=== PATIENT | male | born 1965 | race Caucasian/White ===

== ENCOUNTER → 2016-08-02 | Outpatient (REF) | payer OTHER ==
[2016-08-02 14:16] LABS: BASO % 0.5 % (0.0-1.0); EOS # 0.1 K/mm3 (0.0-0.50); LARGE UNSTAINED CELL # 0.1 K/mm3 (0.0-0.4); LARGE UNSTAINED CELL % 2.6 % (0.0-4.0); LYMPH # 1.3 K/mm3 (1.5-4.5); MEAN CORPUSCULAR HEMOGLOBIN 30.1 pg (27.0-33.0); MEAN CORPUSCULAR HGB CONC 33.6 g/dl (32.0-36.5); MEAN CORPUSCULAR VOLUME 89.8 fl (80.0-96.0); MONO # 0.4 K/mm3 (0.0-0.8); MONO % 8.5 % (0.0-5.0); NEUTROPHILS % 61.4 % (36.0-66.0); PLATELET COUNT, AUTOMATED 261 k/mm3 (150-450); WHITE BLOOD COUNT 4.9 K/mm3 (4.0-10.0)
== END ==
LOC: M LABNEURO 13:20
PROVIDERS: ATTEND Physician Assistant Medical
DX: G40.909 Epilepsy, unspecified, not intractable, without status epilepticus (principal)

== ENCOUNTER 2016-08-23 12:11 | Emergency (ER) | payer OTHER ==
[~2016-08-23] VITALS: Ht 175.3 cm; Wt 77.1 kg
[2016-08-23 12:12] VITALS: BP 143/96
[2016-08-23] MEDS ORDERED: DEPA1TAB3 PO (12:28)
[2016-08-23] MEDS ORDERED: NAPR500T PO (13:12)
== END 2016-08-23 13:41 | disposition home or self-care (01) ==
LOC: M ED 13:21
DX: M75.81 Other shoulder lesions, right shoulder (principal); F17.200 Nicotine dependence, unspecified, uncomplicated; Z79.899 Other long term (current) drug therapy

== ENCOUNTER 2016-10-20 22:15 | Emergency (ER) | payer BC, OTHER ==
[~2016-10-20 22:15] MED LIST: DEPA1TAB3 PO; NAPR500T PO
[2016-10-20] MEDS ORDERED: KETOROLAC 30 MG/ML VIAL (J1885) IV ONE (23:30)
--- NOTE | 2016-10-21 00:53 | REP ---
Clinical: Cough. Technique: PA and lateral. Comparison: None. Findings: Diffuse perihilar and predominantly upper lobe infiltrates suggest multifocal pneumonia. No effusion. No pneumothorax. Cardiac silhouette is normal. Underlying adenopathy cannot be excluded. Skeletal structures are intact. Impression: Findings suggest multifocal pneumonia and possible reactive adenopathy. Signed by Yvon Sethi MD 10/21/2016 12:45 A
[2016-10-21 01:56] LABS: ANION GAP 6 MEQ/L (8-16); BASO % 0.3 % (0.0-1.0); BLOOD UREA NITROGEN 12 MG/DL (7-18); CALCIUM LEVEL 8.6 MG/DL (8.5-10.1); CARBON DIOXIDE LEVEL 30 MEQ/L (21-32); CHLORIDE LEVEL 107 MEQ/L (98-107); CREATININE FOR GFR 0.97 MG/DL (0.70-1.30); EOS # 0.2 K/mm3 (0.0-0.50); GLOMERULAR FILTRATION RATE > 60.0 (>56); GLUCOSE, FASTING 103 MG/DL (70-105); LARGE UNSTAINED CELL # 0.1 K/mm3 (0.0-0.4); LARGE UNSTAINED CELL % 2.2 % (0.0-4.0); LYMPH # 1.3 K/mm3 (1.5-4.5); LYMPH % 17.8 % (24.0-44.0); MEAN CORPUSCULAR HEMOGLOBIN 30.3 pg (27.0-33.0); MEAN CORPUSCULAR HGB CONC 34.2 g/dl (32.0-36.5); MEAN CORPUSCULAR VOLUME 88.5 fl (80.0-96.0); MONO # 0.7 K/mm3 (0.0-0.8); MONO % 11.1 % (0.0-5.0); NEUTROPHILS # 4.2 K/mm3 (1.8-7.7); NEUTROPHILS % 65.7 % (36.0-66.0); PLATELET COUNT, AUTOMATED 261 k/mm3 (150-450); POTASSIUM SERUM 3.9 MEQ/L (3.5-5.1); SODIUM LEVEL 143 MEQ/L (136-145); WHITE BLOOD COUNT 6.4 K/mm3 (4.0-10.0)
--- NOTE | 2016-10-21 02:09 | REP ---
Clinical: Pneumonia. Cough. Technique: Axial noncontrast images from the thoracic inlet to the upper abdomen with coronal and sagittal re-formations. Findings: Diffuse moderate bilateral reticulonodular interstitial infiltrates are appreciated primarily involving the upper lobes (left greater than right) and superior segments of the lower lobes. Subtle reactive mediastinal and hilar adenopathy is suggested. No pleural effusion or pneumothorax. The tracheobronchial tree is patent. The dominant nodule is identified in the left lower lobe measuring 7.5 mm (image 71). Thoracic aorta, heart and pericardium are relatively normal for age. Musculoskeletal structures are intact and without focal osseous abnormality. Impression: 1. Moderate diffuse bilateral reticulonodular interstitial infiltrates with reactive adenopathy. Findings suggest acute multifocal pneumonia / pneumonitis. Follow-up to resolution and/or reevaluation and 3 months may be warranted. 2. 7.5 mm dominant soft tissue nodule in the left lower lobe also requires 3-month follow-up evaluation. Signed by Yvon Sethi MD 10/21/2016 01:59 A
[2016-10-21] MEDS ORDERED: NAPR500T PO (04:01)
[2016-10-21 04:18] VITALS: BP 136/87
--- NOTE | 2016-10-22 08:43 | ED PDOC ---
Post-Departure Follow-Up chet olvera faxed formal report of ct chest. pt also sent certified letter. see rad recomm. laineg Ryan Mccabe MD Oct 22, 2016 08:43
--- NOTE | 2016-10-22 09:09 | ECGEPIP ---
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
== END 2016-10-21 04:26 | disposition home or self-care (01) ==
LOC: EDBD 22:15 → M ED 23:53
DX: J18.9 Pneumonia, unspecified organism (principal); R07.89 Other chest pain; R05 Cough; R91.1 Solitary pulmonary nodule; F17.200 Nicotine dependence, unspecified, uncomplicated; Z79.899 Other long term (current) drug therapy
CPT/HCPCS: 36415; 71020; 71250; 80048; 85025; 87040; 93005; 96374; 99284; J1885

== ENCOUNTER 2016-10-25 10:22 | Emergency (ER) | payer BC ==
[~2016-10-25] VITALS: Ht 175.3 cm; Wt 76.5 kg
[2016-10-25 12:26] VITALS: BP 135/95
[2016-10-25] MEDS ORDERED: BACT800T5 PO (12:29)
[2016-10-25] MEDS ORDERED: NAPR500T PO (12:29)
--- NOTE | 2016-10-25 12:33 | REP ---
REASON: Upper back mass. No prior ultrasound exams for comparison. Previous chest CT 10/21/2016 showed a 3 cm sized low density but solid appearing subcutaneous and deep subcutaneous nodule just to the left of the midline back at the level of the T4-5 interspace. Ultrasonography over the region of interest shows a mixed but solid vascular mass which measures 4.2 x 2.2 x 4.2 cm. Internal Doppler signal from vascular flow excludes an abscess. IMPRESSION: There is a solid mass just to the left of midline in the upper back region as described above. Signed by Josué Christianson DO 10/25/2016 01:43 P
== END 2016-10-25 12:37 | disposition home or self-care (01) ==
LOC: M ED 11:43
DX: L03.312 Cellulitis of back [any part except buttock and flank] (principal); D17.1 Benign lipomatous neoplasm of skin and subcutaneous tissue of trunk; G40.909 Epilepsy, unspecified, not intractable, without status epilepticus; F17.200 Nicotine dependence, unspecified, uncomplicated; Z79.1 Long term (current) use of non-steroidal anti-inflammatories (NSAID); Z79.899 Other long term (current) drug therapy

== ENCOUNTER → 2016-11-01 | Outpatient (REF) | payer BC ==
[~2016-11-01] MED LIST changes: +BACT800T5 PO
== END ==
LOC: M SFHCPLAZ 16:50
DX: L02.212 Cutaneous abscess of back [any part, except buttock and flank] (principal)

== ENCOUNTER → 2016-11-02 | Outpatient (CLI) | payer BC ==
[2016-11-02 13:04] LABS: BASO % 0.7 % (0.0-1.0); EOS # 0.2 K/mm3 (0.0-0.50); EOS % 4.9 % (0.0-3.0); LARGE UNSTAINED CELL # 0.2 K/mm3 (0.0-0.4); LARGE UNSTAINED CELL % 3.4 % (0.0-4.0); LYMPH % 18.2 % (24.0-44.0); MEAN CORPUSCULAR HEMOGLOBIN 30.7 pg (27.0-33.0); MEAN CORPUSCULAR HGB CONC 33.9 g/dl (32.0-36.5); MEAN CORPUSCULAR VOLUME 90.6 fl (80.0-96.0); MONO # 0.5 K/mm3 (0.0-0.8); MONO % 11.4 % (0.0-5.0); NEUTROPHILS # 2.9 K/mm3 (1.8-7.7); NEUTROPHILS % 61.3 % (36.0-66.0); PLATELET COUNT, AUTOMATED 263 k/mm3 (150-450); RED CELL DISTRIBUTION WIDTH 12.8 % (11.5-14.5); WHITE BLOOD COUNT 4.7 K/mm3 (4.0-10.0)
[2016-11-02 13:37] LABS: ALBUMIN 3.4 GM/DL (3.2-5.2); ALBUMIN/GLOBULIN RATIO 0.94 (1.00-1.93); BILIRUBIN,TOTAL 0.5 MG/DL (0.2-1.0); CALCIUM LEVEL 9.1 MG/DL (8.5-10.1); CREATININE FOR GFR 1.39 MG/DL (0.70-1.30); GLOMERULAR FILTRATION RATE 57.6 (>56); POTASSIUM SERUM 4.9 MEQ/L (3.5-5.1)
== END ==
LOC: M WUC 08:12
DX: Z13.220 Encounter for screening for lipoid disorders (principal); Z79.899 Other long term (current) drug therapy; L02.212 Cutaneous abscess of back [any part, except buttock and flank]

== ENCOUNTER → 2017-03-18 | Outpatient (CLI) | payer BC ==
--- NOTE | 2017-03-18 17:04 | REP ---
Clinical: Follow-up pulmonary nodule. Comparison: 10/21/2016. Findings: Innumerable bilateral reticulonodular interstitial changes are appreciated primarily involving the bilateral upper lung zones in a pattern which is essentially unchanged when compared to prior examination. Nodules primarily measure up to 4 - 5 mm. With a solitary nodule in the left lower lobe measuring up to approximately 8 mm and unchanged. Mediastinal and hilar adenopathy is appreciated. Differential diagnosis includes but is not limited to Sarcoidosis. No pleural effusion. No pneumothorax. Tracheobronchial tree is patent. Thoracic aorta and heart/pericardium appear grossly unremarkable. Mild atherosclerotic changes to the aorta and coronary arteries noted. Impression: No significant change to the diffuse reticulonodular interstitial pattern and adenopathy as well as a 8 mm nodule in the left lower lobe. Differential diagnosis includes but is not limited to sarcoidosis and chronic pneumonitis. Pulmonology consultation is recommended. Signed by Yvon Sethi MD 03/18/2017 04:56 P
== END ==
LOC: M RAD 15:38
PROVIDERS: ATTEND Internal Medicine
DX: R91.1 Solitary pulmonary nodule (principal)

== ENCOUNTER → 2017-05-06 | Outpatient (CLI) | payer BC ==
[2017-05-06 14:10] LABS: CHOLESTEROL LEVEL 162 MG/DL (<200); CHOLESTEROL RISK RATIO 5.062 (<5); HDL CHOLESTEROL 32 MG/DL (>40); NON-HDL-C 130 MG/DL; TRIGLYCERIDES LEVEL 90 MG/DL (<150)
== END ==
LOC: M WUC 11:10
DX: E78.5 Hyperlipidemia, unspecified (principal)
CPT/HCPCS: 80061

== ENCOUNTER 2017-07-01 18:24 | Emergency (ER) | payer OTHER, BC ==
[2017-07-01] MEDS: TETRACAINE 0.5% OPHTH SOLN 4ML OD (19:15)
[2017-07-01] MEDS: FLUORESCEIN OPHTH 1 MG STRIP OD ×2 (19:45→19:52)
[2017-07-01] MEDS ORDERED: POLYTRIM OPTH DROPS 10ML OD (21:00)
== END 2017-07-01 20:45 | disposition home or self-care (01) ==
LOC: M ED 18:24
DX: S05.01XA Injury of conjunctiva and corneal abrasion without foreign body, right eye, initial encounter (principal); X58.XXXA Exposure to other specified factors, initial encounter; Y92.89 Other specified places as the place of occurrence of the external cause; Z79.899 Other long term (current) drug therapy; Z87.891 Personal history of nicotine dependence
CPT/HCPCS: 99283

== ENCOUNTER 2017-08-15 06:39 | Day surgery (SDC) | payer BC ==
[2017-08-15] MEDS: NS 1,000 ML IV (07:11)
[2017-08-15] MEDS ORDERED: PROPOFOL 200 MG/20 ML VIAL As Ordered ×2 (07:53→07:59)
[2017-08-15] MEDS ORDERED: LIDOCAINE 2% INJ 100 MG/5 ML SDV (FOR ANES.) As Ordered (07:53)
== END 2017-08-15 09:04 | disposition home or self-care (01) ==
LOC: M OPP 06:39
DX: Z12.11 Encounter for screening for malignant neoplasm of colon (principal); K64.8 Other hemorrhoids; D12.3 Benign neoplasm of transverse colon; D12.5 Benign neoplasm of sigmoid colon; K62.1 Rectal polyp; R56.9 Unspecified convulsions; Z79.899 Other long term (current) drug therapy; Z88.8 Allergy status to other drugs, medicaments and biological substances
CPT/HCPCS: 45385

== ENCOUNTER → 2017-08-18 | Outpatient (CLI) | payer BC ==
[2017-08-18 16:50] LABS: BASO % 0.4 % (0.0-1.0); EOS # 0.2 10^3/uL (0.0-0.50); EOS % 3.1 % (0.0-3.0); HEMATOCRIT 42.2 % (42.0-52.0); HEMOGLOBIN 14.3 g/dl (13.5-17.5); IMMATURE GRANULOCYTE % 0.4 % (0-3.0); LYMPH # 1.2 10^3/uL (1.5-4.5); LYMPH % 22.9 % (24.0-44.0); MEAN CORPUSCULAR HEMOGLOBIN 28.3 pg (27.0-33.0); MEAN CORPUSCULAR HGB CONC 33.9 g/dl (32.0-36.5); MEAN CORPUSCULAR VOLUME 83.6 fl (80.0-96.0); MONO # 0.6 10^3/uL (0.0-0.8); MONO % 12.2 % (0.0-5.0); NEUTROPHILS # 3.2 10^3/uL (1.8-7.7); PLATELET COUNT, AUTOMATED 267 10^3/uL (150-450); RED BLOOD COUNT 5.05 10^6/uL (4.30-6.10); RED CELL DISTRIBUTION WIDTH 12.9 % (11.5-14.5); WHITE BLOOD COUNT 5.2 10^3/uL (4.0-10.0)
[2017-08-18 17:24] LABS: AST/SGOT 34 U/L (7-37)
[2017-08-18 17:24] LABS: ALT/SGPT 26 U/L (12-78); VALPROIC ACID (DEPAKOTE) 64.3 UG/ML (50.0-100.0)
== END ==
LOC: M LAB 16:09
DX: R56.9 Unspecified convulsions (principal); Z79.899 Other long term (current) drug therapy
CPT/HCPCS: 84460

== ENCOUNTER 2017-12-22 16:53 | Emergency (ER) | payer BC ==
[2017-12-22] MEDS: NS 1,000 ML IV (16:24)
[2017-12-22 16:39] LABS: BASO % 0.5 % (0.0-1.0); EOS # 0.1 10^3/uL (0.0-0.50); EOS % 2.2 % (0.0-3.0); HEMATOCRIT 42.9 % (42.0-52.0); IMMATURE GRANULOCYTE % 0.3 % (0-3.0); LYMPH # 1.8 10^3/uL (1.5-4.5); LYMPH % 31.3 % (24.0-44.0); MEAN CORPUSCULAR HEMOGLOBIN 28.6 pg (27.0-33.0); MEAN CORPUSCULAR VOLUME 81.9 fl (80.0-96.0); MONO % 17.2 % (0.0-5.0); NEUTROPHILS # 2.8 10^3/uL (1.8-7.7); NEUTROPHILS % 48.5 % (36.0-66.0); PLATELET COUNT, AUTOMATED 312 10^3/uL (150-450); RED BLOOD COUNT 5.24 10^6/uL (4.30-6.10); WHITE BLOOD COUNT 5.9 10^3/uL (4.0-10.0)
[2017-12-22] MEDS: CLOPIDOGREL 300 MG TAB (PLAVIX) PO (16:39)
[2017-12-22] MEDS: HEPARIN SOD (PORCINE) 5000 UNITS/ML VIAL IV (16:40)
[2017-12-22] MEDS: HEPARIN DRIP 25,000 UNITS in APPROPRIATE DILUENT 1 EA IV (16:41)
[2017-12-22 16:48] LABS: ANION GAP 11 MEQ/L (8-16); BLOOD UREA NITROGEN 18 MG/DL (7-18); CALCIUM LEVEL 9.3 MG/DL (8.5-10.1); CARBON DIOXIDE LEVEL 27 MEQ/L (21-32); CHLORIDE LEVEL 102 MEQ/L (98-107); CPK CREATINE PHOSPHOKINASE 81 U/L (39-308); CREATININE FOR GFR 1.16 MG/DL (0.70-1.30); GLOMERULAR FILTRATION RATE > 60.0 (>56); GLUCOSE, FASTING 98 MG/DL (70-100); POTASSIUM SERUM 4.7 MEQ/L (3.5-5.1); PROTHROMBIN TIME 14.4 SECONDS (12.1-14.4); SODIUM LEVEL 140 MEQ/L (136-145); TROPONIN I < 0.02 NG/ML (< 0.10)
[2017-12-22 16:49] LABS: CK-MB VALUE MASS < 1.0 NG/ML (<3.6); MB/CK RELATIVE INDEX 1.23 (< OR =4); NT-PRO BNP 112 PG/ML (<125)
== END 2017-12-22 17:12 | disposition short-term general hospital (02) ==
LOC: M ED 16:53
DX: I21.29 ST elevation (STEMI) myocardial infarction involving other sites (principal); Z87.891 Personal history of nicotine dependence; Z88.8 Allergy status to other drugs, medicaments and biological substances; Z88.1 Allergy status to other antibiotic agents
CPT/HCPCS: 71045

== ENCOUNTER → 2018-08-10 | Outpatient (REF) | payer BC ==
[~2018-08-10] MED LIST changes: +ARTI99.0 OU; +NAPR-837 PO; -NAPR500T PO; +POLYSOL OP
[2018-08-10 13:34] LABS: BASO % 0.6 % (0.0-1.0); EOS # 0.1 10^3/uL (0.0-0.50); EOS % 2.6 % (0.0-3.0); HEMATOCRIT 46.3 % (42.0-52.0); LYMPH % 37.2 % (24.0-44.0); MEAN CORPUSCULAR HEMOGLOBIN 28.1 pg (27.0-33.0); MEAN CORPUSCULAR HGB CONC 32.4 g/dl (32.0-36.5); MEAN CORPUSCULAR VOLUME 86.7 fl (80.0-96.0); MONO # 0.7 10^3/uL (0.0-0.8); MONO % 13.8 % (0.0-5.0); NEUTROPHILS # 2.4 10^3/uL (1.8-7.7); NEUTROPHILS % 45.6 % (36.0-66.0); PLATELET COUNT, AUTOMATED 237 10^3/uL (150-450); RED BLOOD COUNT 5.34 10^6/uL (4.30-6.10); WHITE BLOOD COUNT 5.3 10^3/uL (4.0-10.0)
[2018-08-10 13:41] LABS: VALPROIC ACID (DEPAKOTE) 91.5 UG/ML (50.0-100.0)
== END ==
LOC: M LABNEURO 08:16
PROVIDERS: ATTEND Physician Assistant Medical
DX: Z79.899 Other long term (current) drug therapy (principal); G40.909 Epilepsy, unspecified, not intractable, without status epilepticus

== ENCOUNTER → 2019-01-22 | Outpatient (REF) | payer BC ==
[~2019-01-22] MED LIST changes: -ARTI99.0 OU; +ARTIDRO2 OU
[2019-01-22 16:03] LABS: CHOLESTEROL RISK RATIO 5.161 (<5)
[2019-01-22 16:17] LABS: HEMOGLOBIN A1c 5.6 %
== END ==
LOC: M SFHCPLAZ 13:24
DX: I25.118 Atherosclerotic heart disease of native coronary artery with other forms of angina pectoris (principal); E78.5 Hyperlipidemia, unspecified

== ENCOUNTER → 2019-02-05 | Outpatient (CLI) | payer BC ==
--- NOTE | 2019-02-05 16:27 | REP ---
HISTORY: Followup pulmonary nodule. COMPARISON: All priors were reviewed, the latest 03/18/2017. That prior examination showed an 8 mm sized nodule in the left lower lobe and a diffuse reticulonodular appearing interstitial pattern. The lack of intravenous contrast decreases the sensitivity of the exam. There is mediastinal and hilar adenopathy, difficult to evaluation without intravenous contrast and essentially unchanged from the latest prior exam. There are no pleural or pericardial effusions. There is no significant change in the appearance of the imaged upper abdomen or imaged osseous structures. Evaluation of the lung singer show heavy patchy and reticulonodular densities, scattered throughout the lung singer with biapical predominance. This has increased significantly compared to the latest prior exam. The heavy areas of consolidation have air bronchograms within them. There are innumerable (too numerous to count) pulmonary nodules of various sizes, some increased from the prior exam while others are new since the prior exam. IMPRESSION: 1. Adenopathy as described above. 2. Abnormal lung field findings as described above. Exact etiology uncertain. Once again, the differential diagnosis includes, but is not limited to sarcoidosis, chronic pneumonitis, BOOP, or other granulomatous/infectious etiologies. Certainly, neoplastic change cannot be ruled out. Electronically Signed by Josué Christianson DO 02/05/2019 04:34 P
== END ==
LOC: M RAD 10:33
PROVIDERS: ATTEND Internal Medicine
DX: R91.1 Solitary pulmonary nodule (principal)

== ENCOUNTER → 2019-04-09 | Outpatient (CLI) | payer BC ==
--- NOTE | 2019-04-09 11:29 | REP ---
Clinical: Follow up abnormal lung findings. Technique: Axial noncontrast images from the thoracic inlet to the upper abdomen with coronal and sagittal re-formations. Comparison: 02/05/2019. Findings: Diffuse reticulonodular interstitial infiltrates with coalescing areas of consolidation noted bilaterally and predominately involving the bilateral perihilar regions and upper lobes remains essentially stable. Underlying adenopathy is unchanged. No effusion. No pneumothorax. The tracheobronchial tree appears patent. No pneumothorax. Minimal atherosclerotic changes to the thoracic aorta and coronary arteries noted without aortic aneurysm or cardiomegaly. No pericardial effusion. Surrounding musculoskeletal structures are intact. Impression: No change from prior examination. Electronically Signed by Yvon Sethi MD 04/09/2019 11:20 A
== END ==
LOC: M RAD 09:58
PROVIDERS: ATTEND Internal Medicine Pulmonary Disease
DX: R91.8 Other nonspecific abnormal finding of lung field (principal)

== ENCOUNTER 2019-05-24 06:03 | Day surgery (SDC) | payer BC ==
[~2019-05-24] VITALS: Ht 175.3 cm; Wt 68.1 kg
[~2019-05-24 06:03] MED LIST changes: +ASPI81TA85 PO; +ATOR40TA75 PO; +GNP650TA8 PO; +LIDOCAINE 1% MDV 20ML VIAL SQ PRN; +LR 1,000 ML IV ONE
[2019-05-24] MEDS ORDERED: EPINEPHrine 1MG/ML INJ 30ML MD-VIAL As Ordered ONE (07:16)
[2019-05-24] MEDS ORDERED: THROMBIN SOLN 20,000 UNITS KIT As Ordered ONE (07:16)
[2019-05-24] MEDS ORDERED: LIDOCAINE 1% SDV INJ 30 ML VIAL As Ordered ONE (07:16)
[2019-05-24] MEDS ORDERED: LIDOCAINE VISCOUS 2% SOLN 15ML UDC As Ordered ONE (07:17)
[2019-05-24] MEDS ORDERED: LIDOCAINE 4% TOPICAL SOLN 50 ML BTL As Ordered ONE (07:17)
[2019-05-24] MEDS ORDERED: CETACAINE SPRAY 5GM As Ordered ONE (07:20)
[2019-05-24] MEDS ORDERED: ONDANSETRON 4MG/2ML VIAL (J2405) As Ordered ONE (07:23)
[2019-05-24] MEDS ORDERED: fentaNYL 100 MCG/2 ML INJECTION (J3010) As Ordered ONE (07:23)
[2019-05-24] MEDS ORDERED: propofoL 200 MG/20 ML VIAL As Ordered ONE (07:23)
[2019-05-24] MEDS ORDERED: LIDOCAINE 2% INJ 100 MG/5 ML SDV (FOR ANES.) As Ordered ONE (07:23)
[2019-05-24] MEDS ORDERED: MIDAZOLAM INJ 2 MG/2 ML VIAL (J2250) As Ordered ONE (07:23)
[2019-05-24] MEDS ORDERED: dexameTHASONE 4 MG/ML 1ML VIAL (J1100) As Ordered ONE (07:23)
[2019-05-24] MEDS ORDERED: ROCURONIUM BROMIDE 50 MG/5 ML VIAL As Ordered ONE (07:23)
[2019-05-24] MEDS ORDERED: SUGAMMADEX SODIUM 500 MG/5 ML VIAL (BRIDION) As Ordered ONE (07:59)
[2019-05-24] MEDS ORDERED: ePHEDrine SULFATE 25 MG/5 ML(5MG/ML) SYRINGE As Ordered ONE (08:00)
[2019-05-24] MEDS ORDERED: PHENYLephrine HCL 500 MCG/5 ML (100MCG/ML) SYRINGE (J2370) As Ordered ONE (08:10)
[2019-05-24] MEDS ORDERED: METOCLOPRAMIDE INJ 10MG/2ML VIAL (J2765) IV PRN (09:30)
[2019-05-24] MEDS ORDERED: fentaNYL 100 MCG/2 ML INJECTION (J3010) IV PRN (09:30)
[2019-05-24] MEDS ORDERED: LR 1,000 ML IV SCH (09:30)
[2019-05-24] MEDS ORDERED: ONDANSETRON 4MG/2ML VIAL (J2405) IV PRN (09:30)
--- NOTE | 2019-05-24 09:56 | REP ---
Portable chest x-ray: Single view. History: Postop evaluation. Comparison study: December 22, 2017. Findings: There is a progressive bilateral interstitial nodular infiltrate pattern throughout the lung singer again seen. These markings are more confluent in the upper lobe perihilar distribution. There has been evidence of progression since December 22, 2017. There is no evidence of pneumothorax or hydrothorax. Electronically Signed by Ion Hylton MD 05/24/2019 09:47 A
--- NOTE | 2019-05-24 10:04 | RO ---
DATE OF PROCEDURE: 05/24/2019 PREOPERATIVE DIAGNOSIS: Bilateral consist the infiltrates with coalescence and mediastinal and hilar lymphadenopathy. POSTOPERATIVE DIAGNOSIS: Bilateral consist the infiltrates with coalescence and mediastinal and hilar lymphadenopathy. PROCEDURE: Bronchoscopy with a ENB with transbronchial biopsies in the right middle lobe and right upper lobe and EBUS with fine needle aspirate of subcarinal lymph node. ANESTHESIA: General. PROCEDURE: Signed consent obtained. Mr. Colon was intubated by anesthesia and that service controlled pain and sedation. [place] procedure was followed. After the time out, the bronchoscopy bronchoscope was entered into the trachea. The left and right lungs were examined. There was a small amount of thick secretions which were read evacuated. Lungs showed normal anatomy airways showed pitting and banding. The ENB probe was then placed and registration was done. Following this a right middle lobe lesion was located using ENB and transbronchial biopsies were taken under fluoroscopy. Following this the ENB probe was replaced and the right upper lobe region was located. An additional five transbronchial biopsies were taken using fluoroscopy. Following this, the airways were examined showed no significant heme. The EBUS probe scope was then used and fine needle aspirate of the subcardinal lymph node was done. Following this, the conventional pro with replaced again used to ensure no significant melena. There is minimal heme and after ensuring that the airways had no new findings, the bronchoscope was withdrawn. Tolerated well. Postprocedure chest x-ray pending. FINDINGS: 1. Minimal secretions. 2. Pitting and banding of the airways. SPECIMENS: 1. Right middle lobe and right upper lobe transbronchial biopsies sent to pathology. 2. Right upper lobe BAL sent to microbiology for AFB and fungal cultures. 3. Subcarinal fine-needle aspirate sent to cytology.
[2019-05-24 11:03] VITALS: BP 103/66
--- NOTE | 2019-05-25 06:45 | ECGEPIP ---
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 : 1965 Requested By: Yee LOUISE Order Number: [id number] Reading MD: Hong Serna Measurements Intervals [place] Rate: 86 P: 64 RI: 153 QRS: 40 QRSD: 88 T: 26 QT: 345 QTc: 415 Interpretive Statements Normal sinus rhythm Some delay in anterior R-wave progression Nonspecific repolarization abnormalities No significant change since prior tracing of 12/22/2017 Electronically Signed on 05-25-2019 6:45:19 EST by Hong Srena
== END 2019-05-24 11:52 | disposition home or self-care (01) ==
LOC: M SDC 06:03
PROVIDERS: ATTEND Internal Medicine Pulmonary Disease
DX: D86.0 Sarcoidosis of lung (principal); R05 Cough; R06.00 Dyspnea, unspecified; R56.9 Unspecified convulsions; I25.118 Atherosclerotic heart disease of native coronary artery with other forms of angina pectoris; E78.5 Hyperlipidemia, unspecified; I25.2 Old myocardial infarction; Z79.82 Long term (current) use of aspirin; Z79.899 Other long term (current) drug therapy; Z87.891 Personal history of nicotine dependence
CPT/HCPCS: 31627; 31628; 31632; 31652; 71045; 76000; 87102; 87116; 87206; 88173; 88305; 93005; J1100; J2250; J2370; J2405; J3010

== ENCOUNTER → 2019-06-04 | Outpatient (CLI) | payer BC ==
[~2019-06-04] MED LIST changes: -LIDOCAINE 1% MDV 20ML VIAL SQ PRN; -LR 1,000 ML IV ONE
[2019-06-04 10:03] LABS: BASO % 0.4 % (0.0-1.0); EOS # 0.1 10^3/uL (0.0-0.5); EOS % 1.8 % (0.0-3.0); HEMATOCRIT 43.1 % (42.0-52.0); HEMOGLOBIN 13.7 g/dl (13.5-17.5); LYMPH # 2.2 10^3/uL (1.5-5.0); LYMPH % 39.3 % (24.0-44.0); MEAN CORPUSCULAR HEMOGLOBIN 27.4 pg (27.0-33.0); MEAN CORPUSCULAR HGB CONC 31.8 g/dl (32.0-36.5); MEAN CORPUSCULAR VOLUME 86.2 fl (80.0-96.0); MONO # 0.9 10^3/uL (0.0-0.8); MONO % 15.6 % (0.0-5.0); NEUTROPHILS # 2.3 10^3/uL (1.5-8.5); NEUTROPHILS % 42.5 % (36.0-66.0); PLATELET COUNT, AUTOMATED 231 10^3/uL (150-450); WHITE BLOOD COUNT 5.5 10^3/uL (4.0-10.0)
[2019-06-04 10:36] LABS: ALT/SGPT 21 U/L (12-78); BILIRUBIN,DIRECT 0.1 MG/DL (0.0-0.2); BILIRUBIN,TOTAL 0.4 MG/DL (0.2-1.0); CALCIUM LEVEL 9.2 MG/DL (8.5-10.1); CREATININE FOR GFR 1.07 MG/DL (0.70-1.30); GLOMERULAR FILTRATION RATE > 60.0 (>56); TOTAL PROTEIN 7.7 GM/DL (6.4-8.2)
== END ==
LOC: M LAB 09:22
PROVIDERS: ATTEND Internal Medicine Pulmonary Disease
DX: D86.2 Sarcoidosis of lung with sarcoidosis of lymph nodes (principal)

== ENCOUNTER 2019-06-27 15:48 | Inpatient (IN) | payer BC ==
[~2019-06-27] VITALS: Ht 175.3 cm; Wt 66.8 kg
[~2019-06-27 15:48] MED LIST changes: -ARTIDRO2 OU; +MEROPENEM INJ 1 GM in IV 1 EA IV SCH; +POLYOPD OU
--- NOTE | 2019-06-27 16:59 | REP ---
Portable chest, single AP view the patient semi upright: Comparisons are the chest CT dated 04/09/2019, PA and lateral chest of 10/20/2016, portable chest, 2017 and portable chest of 05/24/2019. The there is diffuse chronic bilateral marked interstitial coarsening that has gradually increased radiodensity over the course of the prior studies. The densities in the upper lobes have increased and greater right than the remainder the lung singer, particularly on the right. Impression: Diffuse bilateral interstitial coarsening that have gradually increased in density over the series of films. The density in the upper lobes increases at a greater right than the remainder of the lung singer particularly on the right. Electronically Signed by Lio Retana MD 06/27/2019 04:50 P
[2019-06-27 17:09] LABS: BASO % 0.2 % (0.0-1.0); EOS % 0.3 % (0.0-3.0); HEMATOCRIT 34.7 % (42.0-52.0); LYMPH # 0.8 10^3/uL (1.5-5.0); LYMPH % 7.6 % (24.0-44.0); MEAN CORPUSCULAR HEMOGLOBIN 28.7 pg (27.0-33.0); MEAN CORPUSCULAR HGB CONC 34.6 g/dl (32.0-36.5); MONO # 1.2 10^3/uL (0.0-0.8); MONO % 11.1 % (0.0-5.0); NEUTROPHILS # 8.4 10^3/uL (1.5-8.5); NEUTROPHILS % 80.4 % (36.0-66.0); PLATELET COUNT, AUTOMATED 272 10^3/uL (150-450); RED BLOOD COUNT 4.18 10^6/uL (4.30-6.10); WHITE BLOOD COUNT 10.4 10^3/uL (4.0-10.0)
[2019-06-27 17:21] LABS: INR 1.3; PROTHROMBIN TIME 15.9 SECONDS (11.8-14.0)
[2019-06-27 17:22] LABS: PARTIAL THROMBOPLASTIN TIME 35.9 SECONDS (25.0-38.4)
[2019-06-27 17:26] LABS: ALBUMIN 2.4 GM/DL (3.2-5.2); ALT/SGPT 31 U/L (12-78); BILIRUBIN,DIRECT 0.2 MG/DL (0.0-0.2); BILIRUBIN,TOTAL 0.6 MG/DL (0.2-1.0); BLOOD UREA NITROGEN 18 MG/DL (7-18); CALCIUM LEVEL 8.2 MG/DL (8.5-10.1); CARBON DIOXIDE LEVEL 28 MEQ/L (21-32); CHLORIDE LEVEL 100 MEQ/L (98-107); CK-MB VALUE MASS < 1.0 NG/ML (<3.6); CPK CREATINE PHOSPHOKINASE 120 U/L (39-308); CREATININE FOR GFR 1.05 MG/DL (0.70-1.30); GLOMERULAR FILTRATION RATE > 60.0 (>56); GLUCOSE, FASTING 109 MG/DL (70-100); LIPASE 168 U/L (73-393); MB/CK RELATIVE INDEX 0.83 (< OR =4); POTASSIUM SERUM 3.8 MEQ/L (3.5-5.1); SODIUM LEVEL 133 MEQ/L (136-145); TROPONIN I < 0.02 NG/ML (< 0.10)
[2019-06-27] MEDS ORDERED: ISOVUE-370 76% 100ML VIAL (Q9967) As Ordered ONE (17:57)
--- NOTE | 2019-06-27 18:41 | REPVR ---
PROCEDURE INFORMATION: Exam: CT Angiography Chest With Contrast Exam date and time: 06/27/2019 5:59 PM Age: 53 years old Clinical indication: Right-sided chest pain; Additional info: Pleuritic R chest pain TECHNIQUE: Imaging protocol: Computed tomographic angiography of the chest with intravenous contrast. 3D rendering: MIP and/or 3D reconstructed images were created by the technologist. Radiation optimization: All CT scans at this facility use at least one of these dose optimization techniques: automated exposure control; mA and/or kV adjustment per patient size (includes targeted exams where dose is matched to clinical indication); or iterative reconstruction. Contrast material: ISOVUE 370; Contrast volume: 75 ml; Contrast route: IV; COMPARISON: CT Chest without contrast 04/09/2019 10:21 AM FINDINGS: Pulmonary arteries: No focal pulmonary artery filling defect to suggest acute pulmonary embolus. Aorta: No thoracic aortic aneurysm or dissection. Lungs: Pulmonary vascular/interstitial pattern does not suggest active pulmonary edema. Diffuse reticulonodular infiltrates are present in the lungs with areas of perihilar and suprahilar confluence. A new area of consolidation with cavitary properties is present in the right upper lobe measuring 5 x 6 cm. Pleural space: No pleural effusion or pneumothorax. Heart: No overt cardiac enlargement or abnormal volume of pericardial fluid. Lymph nodes: Enlarged mediastinal lymph nodes are present diffusely, along with hilar adenopathy, similar in appearance to the prior CT. The adenopathy is also similar compared to a remote CT from March 18, 2017. Bones/joints: Bony structures show no acute fracture or destructive process. Other findings: Limited visualization of upper abdomen shows no concerning finding. IMPRESSION: 1. No evidence of acute pulmonary embolus. 2. New area of lung consolidation with cavitary properties in the right upper lobe measuring 5 x 6 cm, suggestive of an infectious process which may be necrotizing. 3. Underlying severe reticulonodular interstitial disease with stable perihilar infiltrates and mediastinal and hilar lymphadenopathy suggestive of underlying sarcoidosis or indolent atypical infection Electronically signed by: Colt Celaya On 06/27/2019 18:40:55 PM
[2019-06-27] MEDS ORDERED: cefTRIAXone SOD 1 GM in D5W MINI-BAG PLUS 50 ML IV ONE (20:30)
[2019-06-27] MEDS ORDERED: VANCOMYCIN HCL 1,000 MG, VIAL MATE ADAPTER 1 EACH in D5W 250 ML IV SCH (20:30)
[2019-06-27] MEDS ORDERED: DIVA250T67 PO (20:44)
[2019-06-27] MEDS ORDERED: DIVA500T94 PO (20:44)
[2019-06-27] MEDS ORDERED: KETOROLAC 30 MG/ML VIAL (J1885) IV ONE (21:00)
[2019-06-27] MEDS ORDERED: POLYVINYL ALCOHOL OPHTH SOLN 15 ML(LIQUITEARS) OU SCH (21:00)
[2019-06-27] MEDS ORDERED: DIVALPROEX 250 MG TAB PO SCH (21:00)
[2019-06-27] MEDS: AZITHROMYCIN INJ 500 MG, VIAL MATE ADAPTER 1 EACH in D5W 250 ML IV ONE ×2 (21:00→22:45)
[2019-06-27] MEDS ORDERED: guaiFENesin DM LIQ 10ML UD PO ONE (21:00)
--- NOTE | 2019-06-27 21:00 | ECGEPIP ---
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
[2019-06-27 21:11] LABS: ERYTHROCYTE SEDIMENTATION RATE 63 mm/hr (0-20)
--- NOTE | 2019-06-27 21:55 | HPE ---
DATE OF ADMISSION: 06/27/2019 CHIEF COMPLAINT: Pleuritic chest pain right upper lobe. HISTORY OF PRESENTING ILLNESS: This is a 53-year-old, cachectic appearing male with more than 30 pack-year history of smoking, quit November 2016, is being worked up for sarcoidosis, recently had a bronchoscopy done in early June by buffing wheel former automatic, Dr Bahena, presents to emergency room with complaints of right upper lobe pleuritic chest pain that started last after the bronchoscopy, much more pronounced today, described as sharp, persistent throughout the day, rated 10/10 on a pain scale. Patient did not take any [id number] medications, denied any use of acetaminophen or ibuprofen, unchanged with position. Patient also had some shortness of breath when he was ambulating and going up the stairs. He has had a cough productive of green sputum, very liquidy. No fever, chills, rigors. No nausea, vomiting, headache, sore throat, ear discharge, changes in appetite, weight gain, or weight loss. No difficulty sleeping at night. He does have persistent cough at the bedside currently and was taking NyQuil day and night at home. He otherwise denied any dysphagia or odynophagia. In the emergency room (ER), he was afebrile, 99.7, white count was 10.4, sedimentation rate was pending, CRP is also pending. Patient was found to be comfortable with 96% on room air. CT angio showed no pulmonary embolism, but new area of lung consolidation with cavitation in the right upper lobe measuring 5 x 6 cm suggestive of an infectious process which may be necrotizing. Underlying severe reticulonodular interstitial disease with stable perihilar infiltrates and mediastinal and hilar lymphadenopathy suggestive of underlying sarcoidosis or indolent atypical infection. Hospitalist was asked to admit for possible right upper lobe necrotizing infection versus atypical infection in the setting of probable sarcoidosis currently being worked up by Dr. Bahena, buffing wheel former automatic. Patient also admits to slight hemoptysis which he said was normal after bronchoscopy. Otherwise, no other complaints. Patient has had no change in weight, remains at 147 pounds. Patient denies any pets at home or recent travel. 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 He lives with his father. No recent travel outside of [facility] and no exposure to birds or bats. PAST MEDICAL HISTORY: Probable sarcoidosis, history of seizures, cutaneous abscess of the back, coronary artery disease status post myocardial infarction (MN) in 2018, hyperlipidemia, external and internal hemorrhoids, colonic polyps, tubular and hyperplastic. PAST SURGICAL HISTORY: Bronchoscopy early June 2019, [facility], Dr. Bahena. ALLERGIES: Adhesives, causing a rash. NEOSPORIN, causing a rash. FAMILY HISTORY: Father alive, age 76, with hypertension and hypercholesterolemia. Mother in her 70s with liver failure associated with alcohol abuse. Three brothers are alive, one brother has hypertension. HOME MEDICATIONS: - acetaminophen 650 as needed for headache - aspirin 81 daily - atorvastatin 40 daily - Depakote 500 mg twice a day, 250 twice a day - artificial tears both eyes twice a day SOCIAL HISTORY: Lives with his father. 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 He has no pets. No exposure to bats, birds. He is exposed to insulation, sheet rock, and dust. Previous smoker, quit November 2016, a pack a day for over 30 years. Drinks one or two beers on Fridays. No recreational drug use. REVIEW OF SYSTEMS: Per history of presenting illness (HPI). 12-point system otherwise negative. PHYSICAL EXAMINATION: Vital signs: Temperature 99.7, pulse 79, respiratory rate 18, blood pressure 128/72, 96% on room air. Generally: Patient appears cachectic, disheveled, very poor dentition with missing teeth. No jugular venous distention (JVD), no thyromegaly, no cervical lymphadenopathy. No cyanosis, able to speak in full sentences, no tracheal deviation. Tongue is midline. No axillary or lymphadenopathy. Lung exam: Air entry is equal bilaterally, no kyphoscoliosis, unlabored, there is very fine crackles in the right upper lobe, no rales, some coarse rhonchi. Abdomen: Soft, scaphoid, positive bowel sounds times four quadrants. No rebound, guarding, no hepatosplenomegaly, no abdominal bruits. No CVA tenderness. Extremities: No cyanosis, clubbing, or pitting edema. Skin: Warm, dry, well-perfused, pink in color. LABORATORY DATA: White count 10.4, hemoglobin 12, hematocrit 34, platelet count 272, 80% neutrophils, sodium 133, potassium 3.8, chloride 100, bicarbonate 28, BUN 18, creatinine 1.05, glucose 109, calcium 8.2, total bilirubin 0.6, direct bilirubin 0.8, AST 30, ALT 31, alkaline phosphatase 77, total CK 120, MB fraction less than 1, troponin less than 0.02, C-reactive protein pending, total protein 7, albumin 2.4, lipase 168. Valproic acid level pending. INR 1.3, PTT 35.9, PT 15.9. Blood cultures, two sets, pending. Sputum culture, methicillin-resistant Staphylococcus aureus (MRSA) screen pending. Respiratory panel pending. IMAGING STUDIES: CT chest: No pulmonary embolism. New area of lung consolidation with cavitary properties in the right upper lobe measuring 5 x 6 cm suggestive of an infectious process which may be necrotizing. Underlying severe reticulonodular interstitial disease with stable perihilar infiltrates and mediastinal and hilar lymphadenopathy suggestive of underlying sarcoidosis or indolent atypical infection. ASSESSMENT AND PLAN: This is a 53-year-old male with history of seizures, being worked up for sarcoidosis of the lung, hyperlipidemia, coronary artery disease (CAD), myocardial infarction (MN) in 2018, with more than 30 pack-year history of smoking, presents with worsening right upper lobe pleuritic chest pain along with some shortness of breath, seen in the emergency room (ER) and was found to have a possible necrotizing cavitary lesion in the right upper lobe measuring 5 x 6 cm. Hospitalist was asked to admit. ACUTE ISSUES: Are as follows: 1. Right upper lobe cavitary lung lesion measuring 5 x 6 cm suggestive of infectious or necrotizing etiology. Patient will be broadly covered for gram-positive, gram-negative anaerobic infection, as well as atypical organisms with vancomycin, meropenem, and azithromycin. We will consult infectious disease specialist in the morning, Dr. Melissa Lam, as well as a buffing wheel former automatic in order to determine if we need to cover for fungal infection. Thoracic surgery, Dr. Luis F Allen, to be consulted by the morning team for possible surgical biopsy if recommended by infectious disease specialist, Dr. Lam. Supportive care with supplemental oxygen, nebulizer treatments, antibiotics. Pharmacist has been consulted to renally dose the vancomycin and meropenem if needed. Will check acid-fast bacillus (AFB) sputum times three. Patient will be placed on reverse isolation. QuantiFERON test will be obtained as well. No Pulmonary Services are availabe at [facility]. Pt may need transfer to higher level of care. 2. 30 pack-year history of smoking, quit 2017. Nebulizer treatments will be provided. 3. History of coronary artery disease (CAD), myocardial infarction (MN). At this time, since there are no plans for any biopsy, will continue the aspirin. Will need to hold if there are plans for surgical biopsy in the near future. 4. Hemoptysis. Per the patient, he was told this was a normal sequelae of recent bronchoscopy. He currently does not complain of any persistent hemoptysis and said that it was a blood-tinged sputum that he has had for the past 2 days. Will monitor hemoglobin and hematocrit for now and will continue the aspirin unless surgical biopsy is needed, in which case we will discontinue it. 5. Hypercholesterolemia. Check lipid panel in the morning. 6. History of hyperplastic tubular adenomas. No current concerns. 7. Deep venous thrombosis (DVT) prophylaxis with compression stockings. 8. Diet will be a 2 gram sodium diet. 9. CODE STATUS: FULL CODE. Addendum: After reviewing CT chest, thoracic surgeon Dr. Allen , recommended transfer to tertiary center where pulmonary services are available. No beds at [facility], and [facility] in [place]. No beds at [facility] in [place]. Accepted to [facility], Dr. Benoit. RADHA
[2019-06-27 22:00] LABS: VALPROIC ACID (DEPAKOTE) 62.5 UG/ML (50.0-100.0)
[2019-06-27] MEDS ORDERED: MEROPENEM INJ 1 GM in IV 1 EA IV ONE (22:45)
[2019-06-27] MEDS ORDERED: VANCOMYCIN HCL 1,000 MG, VIAL MATE ADAPTER 1 EACH in D5W 250 ML IV ONE (22:45)
[2019-06-27] MEDS ORDERED: ACETAMINOPHEN TAB 650MG DOSE (2X325MG) PO ONE (23:15)
[2019-06-28 00:33] VITALS: BP 117/72
--- NOTE | 2019-06-28 07:07 | DSES ---
DATE OF ADMISSION: 06/27/2019 DATE OF DISCHARGE: PRIMARY DISCHARGE DIAGNOSES: 1. Right upper lobe cavitary lung lesion. 2. History of coronary artery disease (CAD) myocardial infarction ([place]). 3. Probable sarcoidosis. 4. Hemoptysis status post bronchoscopy. 5. History of hyperplastic and tubular colonic polyps. 6. 35 year history of tobacco use. 7. History of seizures. DISCHARGE MEDICATIONS: None. Patient had received one dose of vancomycin 1 gram IV, one dose of meropenem 1 gram IV, azithromycin 500 mg IV, ceftriaxone given in the ER earlier, 2 grams IV. HOSPITAL COURSE: 53-year-old male with 30 pack year history of smoking with bilateral infiltrates noted on previous CT when patient complained of shortness of breath (SOB) and chest pain, worked up by loan review officer Dr. Bahena for probable sarcoidosis, had a bronchoscopy done in the first week of June. He quit smoking in November 2016, presented to the emergency room today with complaint of right anterior chest pleuritic chest pain that started last . The patient says that this much more pronounced, describes the pain as very sharp and persistent throughout the day rating it a 10/10. No medications were taken to decrease the pain at home. He denied any acetaminophen or ibuprofen use, complained of slight hemoptysis, which he was told was normal after bronchoscopy. The patient otherwise denied any persistent night sweats although he had one episode of night sweats last , which resolved on its own. He denied any weight loss and usually is 147 pounds. No changes in appetite. No fever, chills or rigors. He did have initially a white sputum and now with green sputum which is very liquidy without nausea, vomiting or abdominal pain. He denied any sore throat, ear discharge, changes in appetite. He has had no difficulty sleeping at night and currently cough is difficult to expectorate. He has been taking NyQuil day and night at home. He otherwise denies any dysphagia, odynophagia. In the ER today he was afebrile at 99.7, white count was normal at 10.4. He was 96% on room air. CT angio shows a cavitating lesion on the right upper lobe, which could be necrotizing infection. Hospitalist was called to admit. Review of the patient's CT with Dr. Luis F Allen, thoracic surgery, yielded a recommendation to transfer the patient for pulmonary services since at [facility] we do not have pulmonary consult available for the next two weeks. The patient is being transferred to [facility]. The accepting physician is Dr. Benoit. There were no beds available at [facility] in [place], [facility] or [facility]. [facility] in [place] also had no beds available. The patient was agreeable to be transferred. He did receive one dose of vancomycin, meropenem, azithromycin prior to transfer. He did receive one dose of ceftriaxone on arrival. The patient was kept in a negative pressure room with droplet isolation. He remained afebrile throughout his stay in the emergency room. Blood cultures were obtained. The patient did not have any sputum sample available. QuantiFERON TB test, AFB sputum stain times three, sputum culture were not available at this time. The patient is transferred for pulmonary services. PHYSICAL EXAMINATION ON TRANSFER: Temperature 99.7, pulse 92, respiratory rate 18, blood pressure 128/73, 96% on room air. Generally, patient is awake, alert and oriented times three, answering questions appropriately. He is cachectic, disheveled appearing. HEENT/NECK: Very poor dentition with missing teeth and gingival disease. No jugular venous distention (JVD), thyromegaly or cervical lymphadenopathy. Pupils are equally round and reactive to light and accommodation. Extraocular muscles are intact. Normocephalic, atraumatic. Patient is able to speak in full sentences without conversational dyspnea. He has no cyanosis, anicteric. Tongue is midline. No axillary or cervical lymphadenopathy. LUNG EXAM: Air entry is equal bilaterally. No kyphoscoliosis. Unlabored breathing. There are some fine crackles in the right upper lobe. No rales. There is bilateral course rhonchi. HEART: S1, S2 sinus rhythm. No murmurs, rubs or gallops. ABDOMEN: Soft, scaphoid. Positive bowel sounds times four quadrants. No rebound or guarding. No hepatosplenomegaly. No abdominal bruits. No CVA tenderness. No fluid wave. EXTREMITIES: Have no cyanosis, clubbing or any pitting edema. SKIN: Warm and dry, well perfused and pink in color. LABORATORY DATA ON DISCHARGE: White count 10.4, hemoglobin 12, hematocrit 34, platelet count 272, 8% neutrophils. Sodium 133, potassium 3.9, chloride 100, bicarb 28, BUN 18, creatinine 1.05, glucose 109, calcium 8.9, total bilirubin 0.6, direct bilirubin 0.8, AST 30, ALT 31, alkaline phosphatase 77. Total CK 120, MB fraction less 1, troponin less than 0.02, total protein 7, albumin 2.4, lipase 168, INR 1.3, PTT 35.9, PT 15.9. Blood culture two sets are pending. We have ordered Methicillin-resistant Staphylococcus aureus (MRSA) screen, respiratory panel, sputum culture, all of which are not available. QuantiFERON test has also been ordered. The patient has been in the negative pressure room. IMAGING STUDIES: CT chest no pulmonary embolism. No area of lung consolidation with cavitary properties in the right upper lobe measuring 5 x 6 cm suggestive of an infectious process, which may be necrotizing. Underlying severe reticulonodular interstitial disease with stable perihilar infiltrates and mediastinal and hilar lymphadenopathies suggestive of underlying sarcoidosis or indolent atypical infection. EKG on 06/27/2019 1559 hours, sinus tachycardia, ventricular rate of 100, with delayed R progression. No acute ischemic changes. Time spent on hospital discharge: 30 minutes MTDD
[2019-06-28] MEDS ORDERED: AZITHROMYCIN INJ 500 MG, VIAL MATE ADAPTER 1 EACH in D5W 250 ML IV SCH (20:00)
== END 2019-06-27 22:46 | disposition short-term general hospital (02) | DRG 144 ==
LOC: M ED 15:48 → EDBD 15:48 → M ED INP 20:32 → ENRESERV 22:21
PROVIDERS: ADMIT General Practice; ATTEND General Practice
DX: R91.1 Solitary pulmonary nodule (principal); R04.2 Hemoptysis; I25.10 Atherosclerotic heart disease of native coronary artery without angina pectoris; I25.2 Old myocardial infarction; D86.9 Sarcoidosis, unspecified; G40.909 Epilepsy, unspecified, not intractable, without status epilepticus; Z87.891 Personal history of nicotine dependence; E78.5 Hyperlipidemia, unspecified; K64.8 Other hemorrhoids; Z88.8 Allergy status to other drugs, medicaments and biological substances; Z79.82 Long term (current) use of aspirin; Z79.899 Other long term (current) drug therapy

== ENCOUNTER → 2019-08-06 | Outpatient (CLI) | payer BC ==
[~2019-08-06] MED LIST changes: +DIVA250T67 PO; +DIVA500T94 PO; -MEROPENEM INJ 1 GM in IV 1 EA IV SCH
--- NOTE | 2019-08-06 10:32 | REP ---
REASON FOR EXAM: Followup pneumonia. COMPARISON: Multiple, the latest 06/27/2019. Contrast was withheld as per order. The examination is limited without intravenous contrast administration. There is marked mediastinal and hilar adenopathy which is difficult to evaluate without intravenous contrast but is likely either unchanged or changed little from the prior exam of 06/27/2019. It appears similar to the noncontrast enhanced examination of 04/09/2019. There are no pleural or pericardial effusions. The imaged upper abdomen and imaged osseous structures are unchanged. Evaluation of the lung singer again shows heavy scattered reticulonodular densities and large focal area of consolidation in the lung apical regions with a cavitary lesion in the right lung likely in the middle lobe. There is heavy bronchiectasis particularly within these areas of consolidation and having the appearance of varicoid, and in fact, saccular bronchiectatic changes. IMPRESSION: 1. Marked chronic lung field changes as described above with the only noted area of possible improvement in the right lung as described above. 2. Adenopathy as described above. 3. Other findings as described above. Electronically Signed by Josué Christianson DO 08/06/2019 10:33 A
== END ==
LOC: M RAD 09:08
PROVIDERS: ATTEND Internal Medicine Pulmonary Disease
DX: R91.1 Solitary pulmonary nodule (principal)

== ENCOUNTER → 2019-12-17 | Outpatient (CLI) | payer BC ==
[~2019-12-17] MED LIST changes: -ASPI81TA85 PO; +ASPI81TA86 PO
== END ==
LOC: M LAB 08:14
PROVIDERS: ATTEND Internal Medicine Pulmonary Disease
DX: D86.2 Sarcoidosis of lung with sarcoidosis of lymph nodes (principal)

== ENCOUNTER → 2020-02-01 | Outpatient (CLI) | payer BC | LOC: M OUTALCOH 07:43 | PROVIDERS: ATTEND Psychiatry & Neurology Addiction Medicine | DX: Z01.818 Encounter for other preprocedural examination (principal) ==

== ENCOUNTER → 2020-02-25 | Outpatient (CLI) | payer BC ==
--- NOTE | 2020-02-25 08:25 | REP ---
INDICATION: SCARCODOSIS OF LUNG COMPARISON: 12/07/2019, 04/09/2019, 03/18/2017 TECHNIQUE: Axial noncontrast images from the thoracic inlet to the upper abdomen with coronal and sagittal reformations. This CT examination was performed using the following dose reduction techniques: Automated exposure control, adjustment of mA and/or kv according to the patient's size, and use of iterative reconstruction technique. FINDINGS: Significant mediastinal and bilateral hilar adenopathy along with diffuse reticulonodular interstitial changes are consistent with sarcoidosis and similar to multiple prior examinations. The recently noted new or areas of consolidation involving the bilateral perihilar regions and upper lobes including a suspected cavitary component in the right upper lobe are significantly improved and appear to be resolving as compared to 12/07/2019. No new areas of consolidation are identified. No pleural effusion or pneumothorax. Tracheobronchial tree is patent. Mediastinum demonstrates relatively stable appearance of the thoracic aorta, pulmonary vasculature and heart/pericardium with moderate atherosclerotic changes again noted. No pericardial effusion. Surrounding musculoskeletal structures are intact. Limited upper abdomen demonstrates normal bilateral adrenal glands. IMPRESSION: 1. Findings consistent with the given history of sarcoidosis including significant mediastinal and hilar adenopathy as well as diffuse reticulonodular interstitial changes. 2. Areas of consolidation extending from the bilateral elizabeth to the upper lobes demonstrate significant improvement as compared to most recent prior examination. <Electronically signed by Yvon Sethi > 02/25/20 [id number]
[2020-02-25 08:40] LABS: BASO % 0.5 % (0.0-1.0); EOS # 0.1 10^3/uL (0.0-0.5); EOS % 1.2 % (0.0-3.0); HEMATOCRIT 47.8 % (42.0-52.0); HEMOGLOBIN 15.5 g/dl (13.5-17.5); LYMPH # 2.9 10^3/uL (1.5-5.0); LYMPH % 37.9 % (24.0-44.0); MEAN CORPUSCULAR HEMOGLOBIN 28.9 pg (27.0-33.0); MEAN CORPUSCULAR HGB CONC 32.4 g/dl (32.0-36.5); MONO # 0.8 10^3/uL (0.0-0.8); MONO % 10.5 % (0.0-5.0); NEUTROPHILS # 3.7 10^3/uL (1.5-8.5); NEUTROPHILS % 48.8 % (36.0-66.0); PLATELET COUNT, AUTOMATED 191 10^3/uL (150-450); RED BLOOD COUNT 5.37 10^6/uL (4.30-6.10); WHITE BLOOD COUNT 7.6 10^3/uL (4.0-10.0)
[2020-02-25 09:06] LABS: ALBUMIN 3.4 GM/DL (3.2-5.2); ALT/SGPT 25 U/L (12-78); BILIRUBIN,DIRECT 0.2 MG/DL (0.0-0.2); BILIRUBIN,TOTAL 0.7 MG/DL (0.2-1.0); CALCIUM LEVEL 9.1 MG/DL (8.5-10.1); CREATININE FOR GFR 1.11 MG/DL (0.70-1.30); GLOMERULAR FILTRATION RATE > 60.0 (>56); TOTAL PROTEIN 7.4 GM/DL (6.4-8.2)
[2020-02-25 10:47] LABS: HEMOGLOBIN A1c 6.1 %
== END ==
LOC: M RAD 08:01
PROVIDERS: ATTEND Internal Medicine Pulmonary Disease
DX: D86.2 Sarcoidosis of lung with sarcoidosis of lymph nodes (principal)

== ENCOUNTER 2020-03-02 11:30 | Outpatient (RCR) | payer BC | END 2020-03-04 | LOC: M OUTALCOH 11:30 | PROVIDERS: ATTEND Psychiatry & Neurology Addiction Medicine | DX: F10.10 Alcohol abuse, uncomplicated (principal) ==

== ENCOUNTER → 2020-03-08 | Outpatient (REF) | payer BC | LOC: M SFHCPLAZ 12:36 | PROVIDERS: ATTEND Family Medicine | DX: I15.8 Other secondary hypertension (principal) ==

== ENCOUNTER → 2020-03-11 | Outpatient (CLI) | payer BC ==
[2020-03-11 09:43] LABS: BLOOD UREA NITROGEN 19 MG/DL (7-18); CALCIUM LEVEL 9.2 MG/DL (8.5-10.1); CARBON DIOXIDE LEVEL 30 MEQ/L (21-32); CHLORIDE LEVEL 106 MEQ/L (98-107); CREATININE FOR GFR 1.07 MG/DL (0.70-1.30); GLOMERULAR FILTRATION RATE > 60.0 (>56); GLUCOSE, FASTING 98 MG/DL (70-100); POTASSIUM SERUM 3.7 MEQ/L (3.5-5.1); SODIUM LEVEL 143 MEQ/L (136-145)
== END ==
LOC: M LAB 08:31
PROVIDERS: ATTEND Student in an Organized Health Care Education/Training Program
DX: I15.8 Other secondary hypertension (principal)

== ENCOUNTER → 2020-03-15 | Outpatient (REF) | payer BC | LOC: M SFHCPLAZ 10:27 | PROVIDERS: ATTEND Family Medicine | DX: I15.8 Other secondary hypertension (principal) ==

== ENCOUNTER 2020-03-24 11:00 | Outpatient (RCR) | payer BC | END 2020-04-03 | LOC: M OUTALCOH 11:00 | PROVIDERS: ATTEND Psychiatry & Neurology Addiction Medicine | DX: F10.10 Alcohol abuse, uncomplicated (principal) ==

== ENCOUNTER → 2020-03-24 | Outpatient (CLI) | payer BC ==
[2020-03-24 13:03] LABS: BLOOD UREA NITROGEN 13 MG/DL (7-18); CALCIUM LEVEL 9.5 MG/DL (8.5-10.1); CARBON DIOXIDE LEVEL 32 MEQ/L (21-32); CHLORIDE LEVEL 105 MEQ/L (98-107); CREATININE FOR GFR 1.08 MG/DL (0.70-1.30); GLOMERULAR FILTRATION RATE > 60.0 (>56); GLUCOSE, FASTING 95 MG/DL (70-100); POTASSIUM SERUM 3.9 MEQ/L (3.5-5.1); SODIUM LEVEL 141 MEQ/L (136-145)
== END ==
LOC: M LAB 12:04
PROVIDERS: ATTEND Student in an Organized Health Care Education/Training Program
DX: I15.8 Other secondary hypertension (principal)

== ENCOUNTER 2020-05-03 11:00 | Outpatient (RCR) | payer BC | END 2020-05-04 | LOC: M OUTALCOH 11:00 | PROVIDERS: ATTEND Psychiatry & Neurology Addiction Medicine | DX: F10.10 Alcohol abuse, uncomplicated (principal) ==

== ENCOUNTER → 2020-06-21 | Outpatient (CLI) | payer BC ==
[2020-06-21 09:33] LABS: BASO % 0.4 % (0.0-1.0); EOS # 0.1 10^3/uL (0.0-0.5); EOS % 2.3 % (0.0-3.0); HEMATOCRIT 45.1 % (42.0-52.0); HEMOGLOBIN 14.7 g/dl (13.5-17.5); LYMPH # 2.4 10^3/uL (1.5-5.0); LYMPH % 42.2 % (24.0-44.0); MEAN CORPUSCULAR HEMOGLOBIN 28.2 pg (27.0-33.0); MEAN CORPUSCULAR HGB CONC 32.6 g/dl (32.0-36.5); MEAN CORPUSCULAR VOLUME 86.6 fl (80.0-96.0); MONO # 0.9 10^3/uL (0.0-0.8); MONO % 15.8 % (2.0-8.0); NEUTROPHILS # 2.2 10^3/uL (1.5-8.5); NEUTROPHILS % 38.9 % (36.0-66.0); PLATELET COUNT, AUTOMATED 222 10^3/uL (150-450); RED BLOOD COUNT 5.21 10^6/uL (4.30-6.10); WHITE BLOOD COUNT 5.6 10^3/uL (4.0-10.0)
[2020-06-21 10:00] LABS: ALBUMIN 3.4 GM/DL (3.2-5.2); ALT/SGPT 22 U/L (12-78); BILIRUBIN,DIRECT 0.2 MG/DL (0.0-0.2); BILIRUBIN,TOTAL 0.8 MG/DL (0.2-1.0); CALCIUM LEVEL 8.8 MG/DL (8.5-10.1); CREATININE FOR GFR 1.22 MG/DL (0.70-1.30); GLOMERULAR FILTRATION RATE > 60.0 (>56); TOTAL PROTEIN 7.3 GM/DL (6.4-8.2)
== END ==
LOC: M LAB 08:58
PROVIDERS: ATTEND Internal Medicine Pulmonary Disease
DX: D86.2 Sarcoidosis of lung with sarcoidosis of lymph nodes (principal)

== ENCOUNTER → 2020-07-29 | Outpatient (CLI) | payer BC | LOC: M LAB 08:42 | PROVIDERS: ATTEND Physician Assistant Medical | DX: R56.9 Unspecified convulsions (principal) ==

== ENCOUNTER → 2020-08-05 | Outpatient (CLI) | payer BC | LOC: M LAB 10:03 | PROVIDERS: ATTEND Physician Assistant Medical | DX: R56.9 Unspecified convulsions (principal) ==

== ENCOUNTER → 2020-11-13 | Outpatient (CLI) | payer BC ==
[2020-11-13 10:28] LABS: BASO % 0.5 % (0.0-1.0); EOS # 0.1 10^3/uL (0.0-0.5); EOS % 2.5 % (0.0-3.0); HEMATOCRIT 45.3 % (42.0-52.0); LYMPH # 1.7 10^3/uL (1.5-5.0); LYMPH % 31.5 % (24.0-44.0); MEAN CORPUSCULAR HEMOGLOBIN 30.2 pg (27.0-33.0); MEAN CORPUSCULAR HGB CONC 33.1 g/dl (32.0-36.5); MEAN CORPUSCULAR VOLUME 91.1 fl (80.0-96.0); MONO # 0.7 10^3/uL (0.0-0.8); MONO % 12.7 % (2.0-8.0); NEUTROPHILS # 2.8 10^3/uL (1.5-8.5); NEUTROPHILS % 51.5 % (36.0-66.0); PLATELET COUNT, AUTOMATED 188 10^3/uL (150-450); RED BLOOD COUNT 4.97 10^6/uL (4.30-6.10); WHITE BLOOD COUNT 5.5 10^3/uL (4.0-10.0)
[2020-11-13 10:48] LABS: HEMOGLOBIN A1c 5.9 %
[2020-11-13 11:11] LABS: ALBUMIN 3.3 GM/DL (3.2-5.2); ALT/SGPT 29 U/L (12-78); BILIRUBIN,TOTAL 0.4 MG/DL (0.2-1.0); BLOOD UREA NITROGEN 19 MG/DL (7-18); CALCIUM LEVEL 8.8 MG/DL (8.5-10.1); CARBON DIOXIDE LEVEL 32 MEQ/L (21-32); CHLORIDE LEVEL 104 MEQ/L (98-107); GLOMERULAR FILTRATION RATE > 60.0 (>56); GLUCOSE, FASTING 95 MG/DL (70-100); POTASSIUM SERUM 4.3 MEQ/L (3.5-5.1); SODIUM LEVEL 140 MEQ/L (136-145); TOTAL PROTEIN 6.7 GM/DL (6.4-8.2)
== END ==
LOC: M LAB 08:43
PROVIDERS: ATTEND Internal Medicine Pulmonary Disease
DX: D86.2 Sarcoidosis of lung with sarcoidosis of lymph nodes (principal)

== ENCOUNTER → 2021-01-26 | Outpatient (CLI) | payer BC ==
--- NOTE | 2021-01-26 09:00 | REP ---
INDICATION: ABN FINDING OF LUNG COMPARISON: Multiple the latest 02/25/2020 also without contrast TECHNIQUE: Standard helical technique without intravenous contrast FINDINGS: There is mediastinal and hilar adenopathy. Some of the enlarged lymph nodes have developed internal calcifications. There is no significant change in appearance of the imaged upper abdomen or imaged osseous structures. There are no pleural or pericardial effusions. Evaluation of the lung singer shows diffuse bilateral reticulonodular densities with bilateral upper lobe conglomerate areas all of which appears stable. No new abnormal opacities seem to have developed. IMPRESSION: Findings, as described above, consistent with the patient's diagnosis of sarcoidosis. <Electronically signed by oJsué Christianson > 01/26/21 0800
== END ==
LOC: M PLAIMG 07:47
PROVIDERS: ATTEND Internal Medicine Pulmonary Disease
DX: R91.8 Other nonspecific abnormal finding of lung field (principal)

== ENCOUNTER → 2021-02-14 | Outpatient (CLI) | payer BC ==
[2021-02-14 10:41] LABS: ALT/SGPT 43 U/L (12-78); BILIRUBIN,TOTAL 0.5 MG/DL (0.2-1.0); BLOOD UREA NITROGEN 21 MG/DL (7-18); CARBON DIOXIDE LEVEL 33 MEQ/L (21-32); CHLORIDE LEVEL 107 MEQ/L (98-107); CREATININE FOR GFR 1.08 MG/DL (0.70-1.30); GLOMERULAR FILTRATION RATE > 60.0 (>56); GLUCOSE, FASTING 96 MG/DL (70-100); POTASSIUM SERUM 3.8 MEQ/L (3.5-5.1); SODIUM LEVEL 145 MEQ/L (136-145); TOTAL PROTEIN 6.8 GM/DL (6.4-8.2)
== END ==
LOC: M LAB 08:52
PROVIDERS: ATTEND Internal Medicine Pulmonary Disease
DX: D86.2 Sarcoidosis of lung with sarcoidosis of lymph nodes (principal)

== ENCOUNTER → 2021-02-14 | Outpatient (CLI) | payer BC ==
[2021-02-14 10:31] LABS: HEMOGLOBIN A1c 5.7 %
== END ==
LOC: M LAB 09:00
PROVIDERS: ATTEND Student in an Organized Health Care Education/Training Program
DX: R73.03 Prediabetes (principal)

== ENCOUNTER → 2021-02-14 | Outpatient (CLI) | payer BC | LOC: M LAB 08:57 | PROVIDERS: ATTEND Physician Assistant Medical | DX: R56.9 Unspecified convulsions (principal) ==

== ENCOUNTER → 2021-03-02 | Outpatient (CLI) | payer BC ==
--- NOTE | 2021-03-02 16:48 | DEXAMM ---
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 COMPARISON: None. TECHNIQUE: Bone density was measured using dual-energy x-ray absorptiometry (DEXA). FINDINGS: AP SPINE L1-L4 BMD 1.501 g/cm2 Young Adult T-Score 2.5 Age Matched Z-Score 2.4. LT FEMUR, TOTAL BMD 1.151 g/cm2 Young Adult T-Score 1.1 Age Matched Z-Score 0.7. LT NECK BMD 1.058 g/cm2 Young Adult T-Score 0.1 Age Matched Z-Score 0.7. RT FEMUR, TOTAL BMD 1.185 g/cm2 Young Adult T-Score 1.4 Age Matched Z-Score 1.0. RT NECK BMD 1.099 g/cm2 Young Adult T-Score 0.4 Age Matched Z-Score 1.0. IMPRESSION: There is normal bone density of the spine. There is normal bone density of the left hip. There is normal bone density of the right hip. FOLLOW-UP: Recommendation for the next bone density exam: 5 years. <Electronically signed by Lio Subramanian > 03/02/21 [id number]
== END ==
LOC: M WHC 13:24
PROVIDERS: ATTEND Student in an Organized Health Care Education/Training Program
DX: Z79.52 Long term (current) use of systemic steroids (principal)

== ENCOUNTER → 2021-03-26 | Outpatient (REF) | payer BC | LOC: M SFHCPLAZ 14:25 | PROVIDERS: ATTEND Family Medicine | DX: Z53.9 Procedure and treatment not carried out, unspecified reason (principal); E78.5 Hyperlipidemia, unspecified ==

== ENCOUNTER → 2021-04-14 | Outpatient (CLI) | payer BC ==
[2021-04-14 09:57] LABS: CHOLESTEROL RISK RATIO 3.538 (<5)
[2021-04-14 10:14] LABS: HEMOGLOBIN A1c 6.1 %
== END ==
LOC: M LAB 08:38
PROVIDERS: ATTEND Student in an Organized Health Care Education/Training Program
DX: E78.5 Hyperlipidemia, unspecified (principal)

== ENCOUNTER 2021-09-03 14:18 | Emergency (ER) | payer BC ==
[~2021-09-03] VITALS: Ht 175.3 cm; Wt 82.7 kg
[2021-09-03] MEDS ORDERED: BREO1INH3 (14:34)
[2021-09-03] MEDS ORDERED: LISI10TA22 (14:34)
[2021-09-03] MEDS ORDERED: PRED5TA (14:34)
[2021-09-03] MEDS ORDERED: BOOSTRIX/ADACEL VACCINE (DIPHTH/PERTUSS/ACELL/TETANUS) 0.5ML SYR IM ONE (17:05)
[2021-09-03] MEDS ORDERED: KETOROLAC TROMETHAMINE 10 MG TAB PO ONE (17:05)
[2021-09-03] MEDS ORDERED: LIDOCAINE 1% MDV 20ML VIAL SC ONE (17:20)
[2021-09-03] MEDS ORDERED: ALPRAZolam 0.25 MG TAB PO ONE (17:40)
[2021-09-03] MEDS ORDERED: LIDOCAINE W/EPINEPHRINE 1% 20ML VIAL SC ONE (17:40)
[2021-09-03 18:25] VITALS: BP 100/64
[2021-09-03] MEDS ORDERED: NITROGLYCERIN 2% OINT 1 GM *U/D* PKT TOP ONE (18:25)
[2021-09-03] MEDS ORDERED: AMOX875T2 PO (18:40)
[2021-09-03] MEDS ORDERED: AUGMENTIN 875 MG TAB PO ONE (18:45)
[2021-09-03 19:15] VITALS: BP 103/64
== END 2021-09-03 19:16 | disposition home or self-care (01) ==
LOC: M ED 14:18 → EDBD 14:18 → M ED 19:16
DX: S01.21XA Laceration without foreign body of nose, initial encounter (principal); W22.8XXA Striking against or struck by other objects, initial encounter; I10 Essential (primary) hypertension; Z86.79 Personal history of other diseases of the circulatory system; Y92.9 Unspecified place or not applicable; Y93.9 Activity, unspecified; Y99.9 Unspecified external cause status; Z79.811 Long term (current) use of aromatase inhibitors; Z79.899 Other long term (current) drug therapy

== ENCOUNTER 2021-09-13 17:54 | Emergency (ER) | payer BC ==
[~2021-09-13 17:54] MED LIST changes: +AMOX875T2 PO; +BREO1INH3; +LISI10TA22; +PRED5TA
[2021-09-13 18:31] LABS: BASO # 0.1 10^3/uL (0.0-0.2); BASO % 0.4 % (0.0-1.0); EOS % 0.4 % (0.0-3.0); HEMATOCRIT 48.2 % (42.0-52.0); HEMOGLOBIN 16.6 g/dl (13.5-17.5); LYMPH # 1.5 10^3/uL (1.5-5.0); LYMPH % 13.3 % (24.0-44.0); MEAN CORPUSCULAR HEMOGLOBIN 29.9 pg (27.0-33.0); MEAN CORPUSCULAR HGB CONC 34.4 g/dl (32.0-36.5); MEAN CORPUSCULAR VOLUME 86.7 fl (80.0-96.0); MONO # 1.4 10^3/uL (0.0-0.8); MONO % 12.1 % (2.0-8.0); NEUTROPHILS # 8.2 10^3/uL (1.5-8.5); PLATELET COUNT, AUTOMATED 189 10^3/uL (150-450); RED BLOOD COUNT 5.56 10^6/uL (4.30-6.10); WHITE BLOOD COUNT 11.3 10^3/uL (4.0-10.0)
[2021-09-13 18:51] LABS: CK-MB VALUE MASS < 1.0 NG/ML (<3.6); CPK CREATINE PHOSPHOKINASE 59 U/L (39-308); MB/CK RELATIVE INDEX 1.69 (< OR =4)
[2021-09-13 18:52] LABS: ALBUMIN 3.4 GM/DL (3.2-5.2); BILIRUBIN,DIRECT 0.3 MG/DL (0.0-0.2); BILIRUBIN,TOTAL 1.2 MG/DL (0.2-1.0); TOTAL PROTEIN 7.4 GM/DL (6.4-8.2)
[2021-09-13] MEDS ORDERED: ISOVUE-370 76% 100ML VIAL As Ordered ONE (20:09)
[2021-09-13 20:15] LABS: CK-MB VALUE MASS < 1.0 NG/ML (<3.6); CPK CREATINE PHOSPHOKINASE 65 U/L (39-308); MB/CK RELATIVE INDEX 1.54 (< OR =4)
[2021-09-13 21:22] LABS: ALBUMIN 3.2 GM/DL (3.2-5.2); BILIRUBIN,DIRECT 0.3 MG/DL (0.0-0.2); BILIRUBIN,TOTAL 1.2 MG/DL (0.2-1.0); TOTAL PROTEIN 6.9 GM/DL (6.4-8.2); VALPROIC ACID (DEPAKOTE) 48.6 UG/ML (50.0-100.0)
[2021-09-13 22:17] VITALS: O2SAT 96
[2021-09-13] MEDS ORDERED: ASPI-161 PO (23:50)
[2021-09-13] MEDS ORDERED: BREO1INH3 INH (23:50)
[2021-09-13] MEDS ORDERED: PRED5TA PO (23:50)
[2021-09-13] MEDS ORDERED: AMOX875T2 PO (23:50)
[2021-09-13] MEDS ORDERED: DIVA1TAB48 PO (23:50)
[2021-09-13] MEDS ORDERED: LISI10TA22 PO (23:50)
[2021-09-13] MEDS ORDERED: POLYOPD OU (23:50)
[2021-09-13 23:55] VITALS: BP 136/86
[2021-09-13] MEDS ORDERED: HOME MED LIST COMPLETE! XX SCH (23:55)
[2021-09-14] MEDS ORDERED: NIRMATRELVIR/RITONAVIR CO-PACK (EMERGENCY USE AUTH) PO SCH ×2 (09:00)
== END 2021-09-14 | disposition home or self-care (01) ==
LOC: M ED 17:54 → EDBD 17:54 → M ED 09-14
DX: U07.1 COVID-19 (principal); R94.31 Abnormal electrocardiogram [ECG] [EKG]; I10 Essential (primary) hypertension; F10.10 Alcohol abuse, uncomplicated; G40.89 Other seizures; Z88.1 Allergy status to other antibiotic agents; Z79.811 Long term (current) use of aromatase inhibitors; Z79.899 Other long term (current) drug therapy
CPT/HCPCS: 71045; 71275; 74177; 80047; 80076; 80164; 82550; 82553; 83690; 83880; 84484; 85025; 85379; 87486; 87581; 87633; 87798; 93005; 99285; Q9967

== ENCOUNTER → 2021-09-28 | Outpatient (REF) | payer BC ==
[~2021-09-28] MED LIST changes: +ASPI-161 PO; +BREO1INH3 INH; +DIVA1TAB48 PO; +LISI10TA22 PO; +PRED5TA PO
== END ==
LOC: M SFHCPLAZ 11:55
PROVIDERS: ATTEND Family Medicine
DX: Z53.9 Procedure and treatment not carried out, unspecified reason (principal)

== ENCOUNTER → 2021-09-29 | Outpatient (CLI) | payer BC ==
[2021-09-29 10:36] LABS: CHOLESTEROL RISK RATIO 2.906 (<5); VALPROIC ACID (DEPAKOTE) 56.9 UG/ML (50.0-100.0)
[2021-10-02 09:59] LABS: TOTAL 25(OH) VITAMIN D 14.1 NG/ML (30.0-100.0)
== END ==
LOC: M LAB 09:30
PROVIDERS: ATTEND Student in an Organized Health Care Education/Training Program
DX: Z79.52 Long term (current) use of systemic steroids (principal)

== ENCOUNTER → 2021-11-23 | Outpatient (CLI) | payer BC ==
[2021-11-23 09:48] LABS: BASO % 0.2 % (0.0-1.0); EOS # 0.1 10^3/uL (0.0-0.5); EOS % 2.4 % (0.0-3.0); HEMATOCRIT 44.4 % (42.0-52.0); LYMPH % 35.5 % (24.0-44.0); MEAN CORPUSCULAR HEMOGLOBIN 29.9 pg (27.0-33.0); MEAN CORPUSCULAR HGB CONC 33.8 g/dl (32.0-36.5); MEAN CORPUSCULAR VOLUME 88.6 fl (80.0-96.0); MONO # 0.7 10^3/uL (0.0-0.8); MONO % 12.6 % (2.0-8.0); NEUTROPHILS # 2.8 10^3/uL (1.5-8.5); NEUTROPHILS % 48.8 % (36.0-66.0); PLATELET COUNT, AUTOMATED 181 10^3/uL (150-450); RED BLOOD COUNT 5.01 10^6/uL (4.30-6.10); WHITE BLOOD COUNT 5.7 10^3/uL (4.0-10.0)
[2021-11-23 11:23] LABS: ALBUMIN 3.3 GM/DL (3.2-5.2); ALT/SGPT 34 U/L (12-78); BILIRUBIN,TOTAL 0.9 MG/DL (0.2-1.0); BLOOD UREA NITROGEN 18 MG/DL (7-18); CALCIUM LEVEL 9.1 MG/DL (8.5-10.1); CARBON DIOXIDE LEVEL 30 MEQ/L (21-32); CHLORIDE LEVEL 103 MEQ/L (98-107); CREATININE FOR GFR 1.26 MG/DL (0.70-1.30); GLOMERULAR FILTRATION RATE > 60.0 (>56); GLUCOSE, FASTING 102 MG/DL (70-100); POTASSIUM SERUM 4.2 MEQ/L (3.5-5.1); SODIUM LEVEL 137 MEQ/L (136-145); TOTAL PROTEIN 6.7 GM/DL (6.4-8.2); VALPROIC ACID (DEPAKOTE) 97.3 UG/ML (50.0-100.0)
== END ==
LOC: M LAB 09:18
PROVIDERS: ATTEND Psychiatry & Neurology Neurology
DX: R56.9 Unspecified convulsions (principal)

== ENCOUNTER → 2022-02-15 | Outpatient (CLI) | payer BC | LOC: M RAD 13:17 | PROVIDERS: ATTEND Internal Medicine Pulmonary Disease | DX: Z12.2 Encounter for screening for malignant neoplasm of respiratory organs (principal); Z87.891 Personal history of nicotine dependence ==

== ENCOUNTER → 2022-05-09 | Outpatient (CLI) | payer BC | LOC: M RAD 14:51 | PROVIDERS: ATTEND Internal Medicine Pulmonary Disease | DX: R91.8 Other nonspecific abnormal finding of lung field (principal) ==

== ENCOUNTER → 2022-05-21 | Outpatient (REF) | payer BC | LOC: M SFHCPLAZ 14:34 | PROVIDERS: ATTEND Family Medicine | DX: Z53.9 Procedure and treatment not carried out, unspecified reason (principal) ==

== ENCOUNTER → 2022-05-31 | Outpatient (CLI) | payer BC | LOC: M LAB 08:50 | PROVIDERS: ATTEND Student in an Organized Health Care Education/Training Program | DX: E55.9 Vitamin D deficiency, unspecified (principal) ==

== ENCOUNTER 2022-06-29 21:30 | Emergency (ER) | payer BC ==
[~2022-06-29] VITALS: Ht 177.8 cm; Wt 80.0 kg
[2022-06-29] MEDS ORDERED: NS 1,000 ML IV ONE (21:50)
[2022-06-29 22:14] LABS: BASO % 0.2 % (0.0-1.0); EOS # 0.1 10^3/uL (0.0-0.5); EOS % 0.7 % (0.0-3.0); HEMATOCRIT 48.8 % (42.0-52.0); HEMOGLOBIN 16.5 g/dl (13.5-17.5); LYMPH # 0.7 10^3/uL (1.5-5.0); LYMPH % 7.9 % (24.0-44.0); MEAN CORPUSCULAR HEMOGLOBIN 30.1 pg (27.0-33.0); MEAN CORPUSCULAR HGB CONC 33.8 g/dl (32.0-36.5); MEAN CORPUSCULAR VOLUME 88.9 fl (80.0-96.0); MONO # 0.6 10^3/uL (0.0-0.8); MONO % 6.7 % (2.0-8.0); PLATELET COUNT, AUTOMATED 150 10^3/uL (150-450); RED BLOOD COUNT 5.49 10^6/uL (4.30-6.10); WHITE BLOOD COUNT 8.4 10^3/uL (4.0-10.0)
[2022-06-29 22:50] LABS: RSV AMPLIFICATION NEGATIVE (NEGATIVE)
[2022-06-29 23:42] LABS: LIPASE 34 U/L (12-53)
[2022-06-29 23:43] LABS: AMYLASE 56 U/L (30-118)
[2022-06-29 23:48] LABS: ALBUMIN 3.2 G/DL (3.2-5.2); ALKALINE PHOSPHATASE 48 U/L (46-116); ALT/SGPT 37 U/L (7.0-40); AST/SGOT 40 U/L (<34); BILIRUBIN,TOTAL 1.5 MG/DL (0.3-1.2); BLOOD UREA NITROGEN 29 MG/DL (9-23); CALCIUM LEVEL 8.6 MG/DL (8.5-10.1); CARBON DIOXIDE LEVEL 26 MMOL/L (20-31); CHLORIDE LEVEL 105 MMOL/L (98-107); CK-MB VALUE MASS 1.2 NG/ML (<3.6); CREATININE FOR GFR 1.02 MG/DL (0.70-1.30); GLOMERULAR FILTRATION RATE > 60.0 (>56); GLUCOSE, FASTING 109 MG/DL (60-100); POTASSIUM SERUM 4.2 MMOL/L (3.5-5.1); SODIUM LEVEL 138 MMOL/L (136-145); TOTAL PROTEIN 6.2 G/DL (5.7-8.2)
[2022-06-29 23:49] LABS: CPK CREATINE PHOSPHOKINASE 77 U/L (46-171); MB/CK RELATIVE INDEX 1.55 (< OR =4)
[2022-06-30] MEDS ORDERED: NS 1,000 ML IV ONE (00:15)
[2022-06-30 00:30] VITALS: BP 127/78
[2022-06-30 00:54] LABS: CK-MB VALUE MASS < 1.0 NG/ML (<3.6)
[2022-06-30 00:57] LABS: CPK CREATINE PHOSPHOKINASE 81 U/L (46-171); MB/CK RELATIVE INDEX 1.23 (< OR =4)
[2022-06-30 01:19] LABS: APPEARANCE, URINE CLEAR (CLEAR); BACTERIA, URINE AUTO NEGATIVE (NEGATIVE); BILIRUBIN, URINE AUTO NEGATIVE (NEGATIVE); BLOOD, URINE BLOOD NEGATIVE (NEGATIVE); COLOR, URINE AMBER (YELLOW); GLUCOSE, URINE (UA) AUTO NEGATIVE (NEGATIVE); KETONE, URINE AUTO TRACE mg/dL (NEGATIVE); LEUKOCYTE ESTERASE, URINE AUTO NEGATIVE (NEGATIVE); MUCUS, URINE MODERATE (NEGATIVE); NITRITE, URINE AUTO NEGATIVE (NEGATIVE); PROTEIN, URINE AUTO NEGATIVE (NEGATIVE); RBC, URINE AUTO 1 /HPF (0-3); SPECIFIC GRAVITY URINE AUTO 1.029 (1.002-1.035); SQUAMOUS EPITHELIAL CELL UR AU 0 /HPF (0-6); WBC, URINE AUTO 1 /HPF (0-3)
== END 2022-06-30 01:44 | disposition home or self-care (01) ==
LOC: EDBD 21:30 → M ED 21:30
DX: R55 Syncope and collapse (principal); R07.9 Chest pain, unspecified; E86.0 Dehydration; R00.0 Tachycardia, unspecified; I10 Essential (primary) hypertension; E78.5 Hyperlipidemia, unspecified; K21.9 Gastro-esophageal reflux disease without esophagitis; G40.89 Other seizures; Z88.1 Allergy status to other antibiotic agents; Z88.8 Allergy status to other drugs, medicaments and biological substances; Z79.811 Long term (current) use of aromatase inhibitors; Z79.02 Long term (current) use of antithrombotics/antiplatelets; Z79.2 Long term (current) use of antibiotics; Z79.899 Other long term (current) drug therapy

== ENCOUNTER → 2022-10-19 | Outpatient (CLI) | payer BC ==
[~2022-10-19] MED LIST changes: +ARTIDRO4 OU; +MEDR4PAK PO; +NITR0.4S14; -POLYOPD OU; +TRAM50TA2 PO
[2022-10-19 10:02] LABS: BASO % 0.4 % (0.0-1.0); EOS # 0.1 10^3/uL (0.0-0.5); EOS % 2.6 % (0.0-3.0); HEMATOCRIT 45.1 % (42.0-52.0); HEMOGLOBIN 14.9 g/dl (13.5-17.5); LYMPH # 1.5 10^3/uL (1.5-5.0); LYMPH % 32.5 % (24.0-44.0); MEAN CORPUSCULAR HEMOGLOBIN 28.8 pg (27.0-33.0); MEAN CORPUSCULAR VOLUME 87.1 fl (80.0-96.0); MONO # 0.7 10^3/uL (0.0-0.8); MONO % 14.3 % (2.0-8.0); NEUTROPHILS # 2.3 10^3/uL (1.5-8.5); PLATELET COUNT, AUTOMATED 184 10^3/uL (150-450); RED BLOOD COUNT 5.18 10^6/uL (4.30-6.10); WHITE BLOOD COUNT 4.7 10^3/uL (4.0-10.0)
[2022-10-19 10:27] LABS: VALPROIC ACID (DEPAKOTE) 43.1 UG/ML (50.0-100.0)
[2022-10-19 10:29] LABS: ALBUMIN 3.5 G/DL (3.2-5.2); ALKALINE PHOSPHATASE 51 U/L (46-116); ALT/SGPT 20 U/L (7.0-40); AST/SGOT 20 U/L (<34); BLOOD UREA NITROGEN 10 MG/DL (9-23); CALCIUM LEVEL 9.5 MG/DL (8.5-10.1); CARBON DIOXIDE LEVEL 31 MMOL/L (20-31); CHLORIDE LEVEL 105 MMOL/L (98-107); CREATININE FOR GFR 0.98 MG/DL (0.70-1.30); GLOMERULAR FILTRATION RATE > 60.0 (>56); GLUCOSE, FASTING 102 MG/DL (60-100); POTASSIUM SERUM 3.8 MMOL/L (3.5-5.1); SODIUM LEVEL 142 MMOL/L (136-145); TOTAL PROTEIN 6.5 G/DL (5.7-8.2)
== END ==
LOC: M LAB 09:31
PROVIDERS: ATTEND Psychiatry & Neurology Neurology
DX: R56.9 Unspecified convulsions (principal)

== ENCOUNTER 2022-10-20 06:48 | Emergency (ER) | payer BC ==
[~2022-10-20] VITALS: Ht 175.3 cm; Wt 77.7 kg
[~2022-10-20 06:48] MED LIST changes: -MEDR4PAK PO; -NITR0.4S14; -TRAM50TA2 PO
[2022-10-20] MEDS ORDERED: NITR0.4S14 (10:27)
[2022-10-20] MEDS ORDERED: KETOROLAC 60MG 2ML VIAL IM ONE (10:30)
[2022-10-20] MEDS ORDERED: LIDOCAINE 4% CREAM 5GM (LMX4) TOP ONE (10:30)
[2022-10-20 10:53] LABS: BASO % 0.6 % (0.0-1.0); EOS # 0.1 10^3/uL (0.0-0.5); EOS % 2.4 % (0.0-3.0); HEMATOCRIT 45.5 % (42.0-52.0); HEMOGLOBIN 15.1 g/dl (13.5-17.5); LYMPH # 1.5 10^3/uL (1.5-5.0); LYMPH % 30.3 % (24.0-44.0); MEAN CORPUSCULAR HEMOGLOBIN 29.5 pg (27.0-33.0); MEAN CORPUSCULAR HGB CONC 33.2 g/dl (32.0-36.5); MONO # 0.6 10^3/uL (0.0-0.8); MONO % 11.2 % (2.0-8.0); NEUTROPHILS # 2.7 10^3/uL (1.5-8.5); NEUTROPHILS % 55.3 % (36.0-66.0); PLATELET COUNT, AUTOMATED 190 10^3/uL (150-450); RED BLOOD COUNT 5.11 10^6/uL (4.30-6.10); WHITE BLOOD COUNT 4.9 10^3/uL (4.0-10.0)
[2022-10-20 11:04] LABS: ERYTHROCYTE SEDIMENTATION RATE 3 mm/hr (0-20)
[2022-10-20 11:16] LABS: C REACTIVE PROTEIN QUANTITATIV < 0.40 MG/DL (<1.0)
[2022-10-20 12:34] LABS: BLOOD UREA NITROGEN 11 MG/DL (9-23); CALCIUM LEVEL 9.2 MG/DL (8.5-10.1); CARBON DIOXIDE LEVEL 30 MMOL/L (20-31); CHLORIDE LEVEL 107 MMOL/L (98-107); CREATININE FOR GFR 1.03 MG/DL (0.70-1.30); GLOMERULAR FILTRATION RATE > 60.0 (>56); GLUCOSE, FASTING 103 MG/DL (60-100); POTASSIUM SERUM 4.4 MMOL/L (3.5-5.1); SODIUM LEVEL 144 MMOL/L (136-145)
[2022-10-20] MEDS ORDERED: MEDR4PAK PO (12:46)
[2022-10-20] MEDS ORDERED: TRAM50TA2 PO (12:46)
[2022-10-20 12:57] VITALS: BP 145/94; TEMP 98; O2SAT 96
== END 2022-10-20 13:16 | disposition home or self-care (01) ==
LOC: M ED 06:48
DX: M25.511 Pain in right shoulder (principal); I25.2 Old myocardial infarction; G40.909 Epilepsy, unspecified, not intractable, without status epilepticus; F17.200 Nicotine dependence, unspecified, uncomplicated; Z88.1 Allergy status to other antibiotic agents; Z88.8 Allergy status to other drugs, medicaments and biological substances; Z87.828 Personal history of other (healed) physical injury and trauma; Z79.811 Long term (current) use of aromatase inhibitors; Z79.82 Long term (current) use of aspirin; Z79.899 Other long term (current) drug therapy
CPT/HCPCS: 73030; 80048; 83605; 85025; 85652; 86140; 93971; 96372; 99283; J1885

== ENCOUNTER 2022-11-20 07:27 | Emergency (ER) | payer BC ==
[~2022-11-20] VITALS: Ht 175.3 cm; Wt 76.3 kg
[~2022-11-20 07:27] MED LIST changes: +MEDR4PAK PO; +NITR0.4S14; +TRAM50TA2 PO
[2022-11-20] MEDS ORDERED: HYDR-3713 PO (11:39)
[2022-11-20 11:49] VITALS: BP 157/101; TEMP 97.1; O2SAT 99
== END 2022-11-20 11:50 | disposition home or self-care (01) ==
LOC: M ED 07:27
DX: M75.21 Bicipital tendinitis, right shoulder (principal); M54.50 Low back pain, unspecified; I10 Essential (primary) hypertension; I25.2 Old myocardial infarction; Z88.1 Allergy status to other antibiotic agents; Z88.8 Allergy status to other drugs, medicaments and biological substances; Z79.1 Long term (current) use of non-steroidal anti-inflammatories (NSAID); Z79.811 Long term (current) use of aromatase inhibitors; Z79.899 Other long term (current) drug therapy

== ENCOUNTER → 2022-11-29 | Outpatient (CLI) | payer BC ==
[~2022-11-29] MED LIST changes: +HYDR-3713 PO
== END ==
LOC: M PLAIMG 10:34
PROVIDERS: ATTEND Orthopaedic Surgery
DX: M75.31 Calcific tendinitis of right shoulder (principal)

== ENCOUNTER → 2023-02-28 | Outpatient (CLI) | payer BC ==
[2023-02-28 16:57] LABS: ALBUMIN 3.5 G/DL (3.2-5.2); ALKALINE PHOSPHATASE 47 U/L (46-116); ALT/SGPT 19 U/L (7.0-40); AST/SGOT 18 U/L (<34); BILIRUBIN,TOTAL 0.9 MG/DL (0.3-1.2); BLOOD UREA NITROGEN 10 MG/DL (9-23); CALCIUM LEVEL 9.3 MG/DL (8.5-10.1); CARBON DIOXIDE LEVEL 32 MMOL/L (20-31); CHLORIDE LEVEL 101 MMOL/L (98-107); CHOLESTEROL LEVEL 136 MG/DL (<200); CHOLESTEROL RISK RATIO 4.53 (<5); GLOMERULAR FILTRATION RATE > 60.0 (>56); GLUCOSE, FASTING 86 MG/DL (60-100); LDL CHOLESTEROL 84.2 MG/DL (<100); SODIUM LEVEL 141 MMOL/L (136-145); TOTAL PROTEIN 6.8 G/DL (5.7-8.2); TRIGLYCERIDES LEVEL 109 MG/DL (<150)
[2023-02-28 17:11] LABS: HEMOGLOBIN A1c 5.3 % (4.0-6.0)
[2023-02-28 17:12] LABS: HEMOGLOBIN 15.4 g/dl (13.5-17.5); MEAN CORPUSCULAR HEMOGLOBIN 29.6 pg (27.0-33.0); MEAN CORPUSCULAR HGB CONC 34.2 g/dl (32.0-36.5); MEAN CORPUSCULAR VOLUME 86.5 fl (80.0-96.0)
[2023-02-28 17:13] LABS: BASO % 0.4 % (0.0-1.0); EOS # 0.1 10^3/uL (0.0-0.5); EOS % 1.6 % (0.0-3.0); LYMPH # 1.7 10^3/uL (1.5-5.0); LYMPH % 33.9 % (24.0-44.0); MONO # 0.5 10^3/uL (0.0-0.8); MONO % 10.4 % (2.0-8.0); NEUTROPHILS # 2.7 10^3/uL (1.5-8.5); NEUTROPHILS % 53.1 % (36.0-66.0); PLATELET COUNT, AUTOMATED 227 10^3/uL (150-450)
== END ==
LOC: M LAB 15:57
PROVIDERS: ATTEND Student in an Organized Health Care Education/Training Program
DX: G40.309 Generalized idiopathic epilepsy and epileptic syndromes, not intractable, without status epilepticus (principal); E55.9 Vitamin D deficiency, unspecified; I25.118 Atherosclerotic heart disease of native coronary artery with other forms of angina pectoris

== ENCOUNTER 2023-03-18 10:31 | Observation (INO) | payer BC ==
[~2023-03-18] VITALS: Ht 175.3 cm; Wt 76.2 kg
[~2023-03-18 10:31] MED LIST changes: -ALBU8.5H INH; -METO1TAB32 PO
[2023-03-18 11:04] LABS: BASO % 0.2 % (0.0-1.0); EOS % 0.5 % (0.0-3.0); HEMATOCRIT 45.2 % (42.0-52.0); HEMOGLOBIN 15.3 g/dl (13.5-17.5); LYMPH # 1.8 10^3/uL (1.5-5.0); LYMPH % 31.5 % (24.0-44.0); MEAN CORPUSCULAR HGB CONC 33.8 g/dl (32.0-36.5); MEAN CORPUSCULAR VOLUME 85.6 fl (80.0-96.0); MONO # 0.9 10^3/uL (0.0-0.8); MONO % 16.9 % (2.0-8.0); NEUTROPHILS # 2.8 10^3/uL (1.5-8.5); NEUTROPHILS % 50.4 % (36.0-66.0); PLATELET COUNT, AUTOMATED 152 10^3/uL (150-450); RED BLOOD COUNT 5.28 10^6/uL (4.30-6.10); WHITE BLOOD COUNT 5.6 10^3/uL (4.0-10.0)
[2023-03-18 11:26] LABS: LIPASE 70 U/L (12-53)
[2023-03-18 11:28] LABS: CPK CREATINE PHOSPHOKINASE 96 U/L (46-171)
[2023-03-18 11:29] LABS: ALBUMIN 2.9 G/DL (3.2-5.2); ALKALINE PHOSPHATASE 37 U/L (46-116); ALT/SGPT 39 U/L (7.0-40); AST/SGOT 50 U/L (<34); BILIRUBIN,DIRECT 0.4 MG/DL (<0.4); BILIRUBIN,TOTAL 1.1 MG/DL (0.3-1.2); BLOOD UREA NITROGEN 31 MG/DL (9-23); CALCIUM LEVEL 8.2 MG/DL (8.5-10.1); CARBON DIOXIDE LEVEL 27 MMOL/L (20-31); CHLORIDE LEVEL 97 MMOL/L (98-107); CK-MB VALUE MASS 1.9 NG/ML (<3.6); GLOMERULAR FILTRATION RATE > 60.0 (>56); GLUCOSE, FASTING 121 MG/DL (60-100); MB/CK RELATIVE INDEX 1.97 (< OR =4); POTASSIUM SERUM 4.3 MMOL/L (3.5-5.1); SODIUM LEVEL 133 MMOL/L (136-145); TOTAL PROTEIN 6.2 G/DL (5.7-8.2)
[2023-03-18] MEDS ORDERED: ISOVUE-370 76% 100ML VIAL As Ordered ONE (11:30)
[2023-03-18 11:33] LABS: FREE T4 1.09 NG/DL (0.89-1.76); THYROID STIMULATING HORMONE 6.158 uIU/ML (0.55-4.78)
[2023-03-18] MEDS ORDERED: NS 2,230 ML in IV 1 EA IV ONE (11:35)
[2023-03-18 11:41] LABS: RSV AMPLIFICATION NEGATIVE (NEGATIVE)
[2023-03-18 11:59] LABS: MAGNESIUM LEVEL 2.1 MG/DL (1.8-2.4)
[2023-03-18 12:00] LABS: VALPROIC ACID (DEPAKOTE) 93.8 UG/ML (50.0-100.0)
[2023-03-18 12:03] LABS: ETHYL ALCOHOL (ETHANOL) < 0.003 % (0.000-0.010)
[2023-03-18 12:43] LABS: CK-MB VALUE MASS 1.6 NG/ML (<3.6)
[2023-03-18] MEDS ORDERED: cefTRIAXone SOD 2 GM in D5W MINI-BAG PLUS 50 ML IV ONE (12:50)
[2023-03-18 12:52] LABS: MB/CK RELATIVE INDEX 1.81 (< OR =4)
[2023-03-18 13:20] LABS: PROCALCITONIN <0.04 ng/ml
[2023-03-18] MEDS ORDERED: MED REC IN PROGRESS XX SCH (13:20)
[2023-03-18] MEDS ORDERED: MOM 30ML SUSPENSION UDC PO PRN (14:40)
[2023-03-18] MEDS ORDERED: ACETAMINOPHEN TAB 650MG DOSE (2X325MG) PO PRN (14:40)
[2023-03-18] MEDS: NS 1,000 ML IV SCH (14:55)
[2023-03-18 15:29] LABS: AMPHETAMINES LEVEL URINE NEGATIVE (NEGATIVE); BARBITURATES URINE NEGATIVE (NEGATIVE); BENZODIAZEPINES URINE NEGATIVE (NEGATIVE); CANNABINOIDS URINE NEGATIVE (NEGATIVE); COCAINE METABOLITE URINE NEGATIVE (NEGATIVE); METHADONE URINE NEGATIVE (NEGATIVE); OPIATES URINE NEGATIVE (NEGATIVE); PHENCYCLIDINE URINE NEGATIVE (NEGATIVE)
[2023-03-18 15:30] VITALS: BP 99/63; TEMP 97.4; O2SAT 95
[2023-03-18] MEDS ORDERED: HOME MED LIST COMPLETE! XX SCH (16:20)
[2023-03-18] MEDS ORDERED: DIVA250T67 PO (16:22)
[2023-03-18] MEDS ORDERED: ALBU8.5H INH (16:36)
[2023-03-18] MEDS ORDERED: METO1TAB32 PO (16:36)
[2023-03-18] MEDS ORDERED: NITROGLYCERIN 0.4MG SUBL TABLET SL PRN (16:55)
[2023-03-18] MEDS ORDERED: ALBUTEROL 90 MCG/ACT 8GM HFA INHALER INH PRN (16:55)
[2023-03-18] MEDS ORDERED: NS 1,000 ML IV ONE (16:55)
[2023-03-18] MEDS ORDERED: POLYVINYL ALCOHOL OPHTH SOLN 15ML (LIQUITEARS) OU PRN (16:55)
[2023-03-18] MEDS ORDERED: REMDESIVIR 200 MG in NS 250 ML IV ONE (18:00)
[2023-03-18 20:00] VITALS: BP 129/70; TEMP 97.1; O2SAT 93; O2SAT 96
[2023-03-18] MEDS: ADVAIR HFA 230/21MCG INHALER INH SCH (21:33)
[2023-03-18] MEDS: DIVALPROEX 500 MG TAB PO SCH (21:44)
[2023-03-18] MEDS: DIVALPROEX 250MG TAB PO SCH (21:44)
[2023-03-19] VITALS: BP 134/71; PULSE 82; TEMP 97.7; O2SAT 94; O2SAT 96
[2023-03-19 04:00] VITALS: BP 137/81; PULSE 88; TEMP 98.1; O2SAT 93; O2SAT 97
[2023-03-19 05:15] VITALS: BP_SYST 118; BP_SYST 119; BP_DIAS 80; BP_DIAS 82; BP_DIAS 84
[2023-03-19 05:55] LABS: BLOOD UREA NITROGEN 20 MG/DL (9-23); CALCIUM LEVEL 6.8 MG/DL (8.5-10.1); CARBON DIOXIDE LEVEL 24 MMOL/L (20-31); CHLORIDE LEVEL 111 MMOL/L (98-107); CREATININE FOR GFR 0.75 MG/DL (0.70-1.30); GLOMERULAR FILTRATION RATE > 60.0 (>56); GLUCOSE, FASTING 100 MG/DL (60-100); MAGNESIUM LEVEL 1.8 MG/DL (1.8-2.4); POTASSIUM SERUM 3.8 MMOL/L (3.5-5.1); SODIUM LEVEL 142 MMOL/L (136-145)
[2023-03-19 06:07] LABS: HEMATOCRIT 39.1 % (42.0-52.0); MEAN CORPUSCULAR HEMOGLOBIN 29.9 pg (27.0-33.0); MEAN CORPUSCULAR HGB CONC 33.8 g/dl (32.0-36.5); MEAN CORPUSCULAR VOLUME 88.7 fl (80.0-96.0); PLATELET COUNT, AUTOMATED 126 10^3/uL (150-450); RED BLOOD COUNT 4.41 10^6/uL (4.30-6.10); WHITE BLOOD COUNT 4.1 10^3/uL (4.0-10.0)
[2023-03-19 06:12] LABS: HEMOGLOBIN 13.2 g/dl (13.5-17.5)
[2023-03-19] MEDS: NS 1,000 ML IV SCH (06:56)
[2023-03-19 08:00] VITALS: BP 117/71; TEMP 97.9; O2SAT 96
[2023-03-19] MEDS: ADVAIR HFA 230/21MCG INHALER INH SCH (08:28)
[2023-03-19] MEDS ORDERED: ASPIRIN 81MG ENTERIC TABLET PO SCH (09:00)
[2023-03-19] MEDS ORDERED: ENOXAPARIN 40MG/0.4ML SYRINGE (J1650 PER 10MG) SC SCH (09:00)
[2023-03-19] MEDS ORDERED: ATORVASTATIN 20 MG TAB PO SCH (09:00)
[2023-03-19] MEDS: DIVALPROEX 250MG TAB PO SCH (10:36)
[2023-03-19] MEDS: DIVALPROEX 500 MG TAB PO SCH (10:37)
[2023-03-19] MEDS ORDERED: REMDESIVIR 100 MG in NS 250 ML IV SCH ×2 (14:00→18:00)
== END 2023-03-19 17:02 | disposition home or self-care (01) ==
LOC: M ED 10:31 → EDBD 10:31 → M ED INP 10:32 → M PCU 15:10
PROVIDERS: ADMIT Internal Medicine; ATTEND Internal Medicine
DX: R55 Syncope and collapse (principal); E87.20 Acidosis, unspecified; U07.1 COVID-19; R06.00 Dyspnea, unspecified; R07.89 Other chest pain; I10 Essential (primary) hypertension; G40.909 Epilepsy, unspecified, not intractable, without status epilepticus; E78.5 Hyperlipidemia, unspecified; I25.10 Atherosclerotic heart disease of native coronary artery without angina pectoris; I25.2 Old myocardial infarction; Z79.899 Other long term (current) drug therapy; Z79.82 Long term (current) use of aspirin; Z88.8 Allergy status to other drugs, medicaments and biological substances
CPT/HCPCS: 36415; 70450; 71045; 71275; 74177; 80047; 80048; 80076; 80164; 80307; 82077; 82550; 82553; 83605; 83690; 83735; 83880; 84145; 84439; 84443; 84484; 85025; 85027; 85730; 87486; 87581; 87631; 87633; 87798; 93005; 93041; 94640; 94760; 96361; 96365; 96366; 96367; 96372; 96375; 96376; 97116; 97161; 97165; 97530; 99285; J0248; J0696; J1650; Q9967

== ENCOUNTER → 2023-03-18 | Outpatient (CLI) | payer BC ==
[~2023-03-18] MED LIST changes: +ALBU8.5H INH; +METO1TAB32 PO; -NITR0.4S14; +NITR0.4S14 PO
== END ==
LOC: M PLAIMG 09:38
PROVIDERS: ATTEND Student in an Organized Health Care Education/Training Program
DX: R05.1 Acute cough (principal)

== ENCOUNTER 2023-03-20 15:40 | Outpatient (CLI) | payer BC ==
[~2023-03-20 15:40] MED LIST changes: +ALBU8.5H INH; +METO1TAB32 PO
[2023-03-20 15:45] VITALS: BP 172/103; O2SAT 97
[2023-03-20] MEDS ORDERED: REMDESIVIR 100 MG in NS 250 ML IV ONE (16:00)
[2023-03-20 17:10] VITALS: BP 150/96; O2SAT 97
== END 2023-03-20 17:10 | disposition home or self-care (01) ==
LOC: M INFU 15:40
PROVIDERS: ATTEND Internal Medicine
DX: U07.1 COVID-19 (principal); Z88.1 Allergy status to other antibiotic agents; Z88.8 Allergy status to other drugs, medicaments and biological substances
CPT/HCPCS: 96365; J0248

== ENCOUNTER → 2023-04-16 | Outpatient (CLI) | payer BC | LOC: M CARPUL 07:55 | PROVIDERS: ATTEND Student in an Organized Health Care Education/Training Program | DX: R55 Syncope and collapse (principal) ==

== ENCOUNTER → 2023-05-19 | Outpatient (CLI) | payer BC | LOC: M PLARAD 14:53 | PROVIDERS: ATTEND Student in an Organized Health Care Education/Training Program | DX: Z53.9 Procedure and treatment not carried out, unspecified reason (principal) ==

== ENCOUNTER → 2023-07-25 | Day surgery (SDC) | payer BC ==
[~2023-07-25] VITALS: Ht 175.3 cm; Wt 72.3 kg
[~2023-07-25] MED LIST changes: -ASPI-161 PO; +ASPI-615 PO; +GNP1000C11 PO; +propofoL 200 MG/20 ML VIAL As Ordered ONE
[2023-07-25] MEDS: NS 1,000 ML IV ONE (10:00)
[2023-07-25 12:38] VITALS: BP 107/71; TEMP 98; O2SAT 97
== END | disposition home or self-care (01) ==
LOC: M OPP 09:10
PROVIDERS: ATTEND Internal Medicine Gastroenterology
DX: Z12.11 Encounter for screening for malignant neoplasm of colon (principal); Z86.010 Personal history of colon polyps; D12.6 Benign neoplasm of colon, unspecified; K64.8 Other hemorrhoids; K64.4 Residual hemorrhoidal skin tags; K57.30 Diverticulosis of large intestine without perforation or abscess without bleeding; I25.10 Atherosclerotic heart disease of native coronary artery without angina pectoris; Z86.74 Personal history of sudden cardiac arrest; Z87.891 Personal history of nicotine dependence; Z79.02 Long term (current) use of antithrombotics/antiplatelets; Z79.51 Long term (current) use of inhaled steroids; Z79.82 Long term (current) use of aspirin; Z79.899 Other long term (current) drug therapy; Z88.1 Allergy status to other antibiotic agents

== ENCOUNTER 2023-08-10 03:30 | Emergency (ER) | payer BC ==
[~2023-08-10] VITALS: Ht 73.7 cm; Wt 10.4 kg
[~2023-08-10 03:30] MED LIST changes: -propofoL 200 MG/20 ML VIAL As Ordered ONE
[2023-08-10 06:16] VITALS: BP 160/95; TEMP 97.8; O2SAT 100
== END 2023-08-10 08:29 | disposition home or self-care (01) ==
LOC: M ED 03:30
DX: M65.352 Trigger finger, left little finger (principal); I25.2 Old myocardial infarction; I10 Essential (primary) hypertension; Z86.79 Personal history of other diseases of the circulatory system; Z88.1 Allergy status to other antibiotic agents; Z79.52 Long term (current) use of systemic steroids; Z79.811 Long term (current) use of aromatase inhibitors; Z79.02 Long term (current) use of antithrombotics/antiplatelets; Z79.82 Long term (current) use of aspirin; Z79.899 Other long term (current) drug therapy

== ENCOUNTER → 2023-09-15 | Outpatient (CLI) | payer BC | LOC: M PLARAD 11:37 | PROVIDERS: ATTEND Family Medicine | DX: D86.0 Sarcoidosis of lung (principal) | CPT/HCPCS: 78816; A9552 ==

== ENCOUNTER 2023-10-03 05:54 | Day surgery (SDC) | payer BC ==
[~2023-10-03] VITALS: Ht 175.3 cm; Wt 74.8 kg
[2023-10-03] MEDS: BACITRACIN OINTMENT 30GM TUBE As Ordered ONE (07:15)
[2023-10-03] MEDS: SODIUM BICARBONATE 8.4% INJ 50MEQ 50ML VIAL XX ONE (07:55)
[2023-10-03] MEDS: LIDOCAINE W/EPINEPHRINE 1% 20ML VIAL XX ONE (07:55)
[2023-10-03 08:10] VITALS: BP 132/88; TEMP 97.3; O2SAT 98
== END 2023-10-03 08:45 | disposition home or self-care (01) ==
LOC: M SDC 05:54
PROVIDERS: ATTEND Orthopaedic Surgery Hand Surgery
DX: M72.0 Palmar fascial fibromatosis [Dupuytren] (principal); I10 Essential (primary) hypertension; I25.10 Atherosclerotic heart disease of native coronary artery without angina pectoris; E78.00 Pure hypercholesterolemia, unspecified; I25.2 Old myocardial infarction; Z79.899 Other long term (current) drug therapy; Z79.51 Long term (current) use of inhaled steroids; Z79.82 Long term (current) use of aspirin; Z87.891 Personal history of nicotine dependence; Z88.0 Allergy status to penicillin; Z88.1 Allergy status to other antibiotic agents

== ENCOUNTER → 2023-12-05 | Outpatient (CLI) | payer BC | LOC: M LAB 08:17 | PROVIDERS: ATTEND Internal Medicine Pulmonary Disease | DX: D86.2 Sarcoidosis of lung with sarcoidosis of lymph nodes (principal) ==

== ENCOUNTER 2024-01-11 10:49 | Emergency (ER) | payer BC ==
[~2024-01-11] VITALS: Ht 175.3 cm; Wt 78.3 kg
[2024-01-11 11:38] LABS: BASO % 0.3 % (0.0-1.0); EOS # 0.1 10^3/uL (0.0-0.5); EOS % 1.7 % (0.0-3.0); HEMATOCRIT 46.1 % (42.0-52.0); HEMOGLOBIN 15.3 g/dl (13.5-17.5); LYMPH # 1.5 10^3/uL (1.5-5.0); LYMPH % 25.7 % (24.0-44.0); MEAN CORPUSCULAR HEMOGLOBIN 28.4 pg (27.0-33.0); MEAN CORPUSCULAR HGB CONC 33.2 g/dl (32.0-36.5); MEAN CORPUSCULAR VOLUME 85.7 fl (80.0-96.0); MONO # 0.7 10^3/uL (0.0-0.8); MONO % 12.2 % (2.0-8.0); NEUTROPHILS # 3.5 10^3/uL (1.5-8.5); NEUTROPHILS % 59.8 % (36.0-66.0); PLATELET COUNT, AUTOMATED 243 10^3/uL (150-450); RED BLOOD COUNT 5.38 10^6/uL (4.30-6.10); WHITE BLOOD COUNT 5.9 10^3/uL (4.0-10.0)
[2024-01-11 11:57] LABS: ERYTHROCYTE SEDIMENTATION RATE 11 mm/hr (0-20)
[2024-01-11 11:58] LABS: URIC ACID 7.6 MG/DL (3.7-9.2)
[2024-01-11 11:59] LABS: C REACTIVE PROTEIN QUANTITATIV < 0.40 MG/DL (<1.0)
[2024-01-11 12:01] LABS: BLOOD UREA NITROGEN 12 MG/DL (9-23); CALCIUM LEVEL 9.8 MG/DL (8.5-10.1); CARBON DIOXIDE LEVEL 30 MMOL/L (20-31); CHLORIDE LEVEL 105 MMOL/L (98-107); CREATININE FOR GFR 0.97 MG/DL (0.70-1.30); GLOMERULAR FILTRATION RATE > 60.0 (>56); GLUCOSE, FASTING 98 MG/DL (60-100); POTASSIUM SERUM 4.2 MMOL/L (3.5-5.1); SODIUM LEVEL 139 MMOL/L (136-145)
[2024-01-11 12:37] VITALS: BP 137/93; TEMP 97.7; O2SAT 97
== END 2024-01-11 12:39 | disposition home or self-care (01) ==
LOC: M ED 10:49
DX: S93.401A Sprain of unspecified ligament of right ankle, initial encounter (principal); X50.0XXA Overexertion from strenuous movement or load, initial encounter; I25.2 Old myocardial infarction; G40.909 Epilepsy, unspecified, not intractable, without status epilepticus; Z87.891 Personal history of nicotine dependence; Y92.009 Unspecified place in unspecified non-institutional (private) residence as the place of occurrence of the external cause; Y93.89 Activity, other specified; Y99.9 Unspecified external cause status; Z88.1 Allergy status to other antibiotic agents; Z88.8 Allergy status to other drugs, medicaments and biological substances; Z79.52 Long term (current) use of systemic steroids; Z79.82 Long term (current) use of aspirin; Z79.02 Long term (current) use of antithrombotics/antiplatelets; Z79.899 Other long term (current) drug therapy

== ENCOUNTER 2024-06-30 09:34 | Emergency (ER) | payer BC ==
[~2024-06-30] VITALS: Ht 175.3 cm; Wt 73.6 kg
[2024-06-30] MEDS ORDERED: KETOROLAC 30 MG/ML 1ML VIAL As Ordered ONE (11:41)
[2024-06-30] MEDS: KETOROLAC 30 MG/ML 1ML VIAL IM ONE (11:55)
[2024-06-30] MEDS ORDERED: CYCL-707 PO (12:24)
[2024-06-30 12:34] VITALS: BP 130/84; TEMP 97.7; O2SAT 97
== END 2024-06-30 12:37 | disposition home or self-care (01) ==
LOC: M ED 09:34
DX: S39.012A Strain of muscle, fascia and tendon of lower back, initial encounter (principal); W00.9XXA Unspecified fall due to ice and snow, initial encounter; I25.2 Old myocardial infarction; I10 Essential (primary) hypertension; Z88.1 Allergy status to other antibiotic agents; Z88.8 Allergy status to other drugs, medicaments and biological substances; Z79.52 Long term (current) use of systemic steroids; Z79.82 Long term (current) use of aspirin; Z79.02 Long term (current) use of antithrombotics/antiplatelets; Z79.899 Other long term (current) drug therapy; Y92.9 Unspecified place or not applicable; Y93.89 Activity, other specified; Y99.9 Unspecified external cause status
CPT/HCPCS: 72110; 96372; 99283; J1885

== ENCOUNTER 2024-09-17 10:33 | Emergency (ER) | payer BC, OTHER ==
[~2024-09-17] VITALS: Ht 175.3 cm; Wt 77.3 kg
[~2024-09-17 10:33] MED LIST changes: +CYCL-707 PO
[2024-09-17] MEDS ORDERED: diazePAM 5MG TABLET PO ONE (16:10)
[2024-09-17] MEDS: KETOROLAC 30 MG/ML 1ML VIAL IM ONE (16:44)
[2024-09-17] MEDS: ACETAMINOPHEN 500 MG TAB PO ONE (16:44)
[2024-09-17] MEDS ORDERED: MEDR4TAB PO (17:44)
[2024-09-17] MEDS ORDERED: TIZA4CAP PO (17:44)
[2024-09-17 17:48] VITALS: BP 117/79; O2SAT 95
[2024-09-17 17:51] VITALS: TEMP 97.4
== END 2024-09-17 17:58 | disposition home or self-care (01) ==
LOC: M ED 10:33
DX: M46.92 Unspecified inflammatory spondylopathy, cervical region (principal); M19.011 Primary osteoarthritis, right shoulder; Z87.891 Personal history of nicotine dependence; Z88.1 Allergy status to other antibiotic agents; Z88.8 Allergy status to other drugs, medicaments and biological substances; Z79.52 Long term (current) use of systemic steroids; Z79.82 Long term (current) use of aspirin; Z79.1 Long term (current) use of non-steroidal anti-inflammatories (NSAID)
CPT/HCPCS: 72052; 73030; 96372; 99284; J1885

== ENCOUNTER → 2024-11-11 | Outpatient (CLI) | payer OTHER ==
[~2024-11-11] MED LIST changes: +DIVA-41 PO; -DIVA500T94 PO; +MEDR4TAB PO; +TIZA4CAP PO
[2024-11-11 09:22] LABS: BASO # 0.0 10^3/uL (0.0-0.2); BASO % 0.3 % (0.0-1.0); EOS # 0.3 10^3/uL (0.0-0.5); EOS % 4.6 % (0.0-3.0); LYMPH # 2.2 10^3/uL (1.5-5.0); LYMPH % 34.1 % (24.0-44.0); MONO # 0.9 10^3/uL (0.0-0.8); MONO % 13.6 % (2.0-8.0); NEUTROPHILS # 3.0 10^3/uL (1.5-8.5); NEUTROPHILS % 46.9 % (36.0-66.0); PLATELET COUNT, AUTOMATED 222 10^3/uL (150-450)
[2024-11-11 09:53] LABS: ALT/SGPT 35.0 U/L (7.0-40); AST/SGOT 35.0 U/L (<34); CALCIUM LEVEL 9.7 MG/DL (8.5-10.1); CARBON DIOXIDE LEVEL 31.0 MMOL/L (20-31); CHLORIDE LEVEL 102.0 MMOL/L (98-107); CHOLESTEROL LEVEL 172.0 MG/DL (<200); CHOLESTEROL RISK RATIO 5.46 (<5); CREATININE FOR GFR 1.01 MG/DL (0.70-1.30); GLOMERULAR FILTRATION RATE 86.2 (>56); LDL CHOLESTEROL 110.5 MG/DL (<100); NON-HDL-C 140.5 MG/DL; POTASSIUM SERUM 4.5 MMOL/L (3.5-5.1); SODIUM LEVEL 140.0 MMOL/L (136-145); TRIGLYCERIDES LEVEL 150.0 MG/DL (<150)
[2024-11-11 09:55] LABS: TOTAL 25(OH) VITAMIN D 39.3 NG/ML (20.0-100.0)
== END ==
LOC: M LAB 08:21
DX: M19.011 Primary osteoarthritis, right shoulder (principal); E78.5 Hyperlipidemia, unspecified; E55.9 Vitamin D deficiency, unspecified

== ENCOUNTER 2025-01-17 07:52 | Day surgery (SDC) | payer OTHER ==
[~2025-01-17] VITALS: Ht 175.3 cm; Wt 79.2 kg
[~2025-01-17 07:52] MED LIST changes: +BIMA01SOL OU; +FOLI1TAB11 PO; +LIDOCAINE W/EPINEPHrine 1% 20 ML VIAL XX ONE; +MULT18TA PO; +SODIUM BICARBONATE 8.4% INJ 50MEQ/50ML VIAL XX ONE; +THIA50TA4 PO
[2025-01-17 09:45] VITALS: BP 150/88; TEMP 97.3; O2SAT 97
== END 2025-01-17 09:49 | disposition home or self-care (01) ==
LOC: M SDC 07:52
PROVIDERS: ATTEND Orthopaedic Surgery Hand Surgery
DX: G56.02 Carpal tunnel syndrome, left upper limb (principal); I10 Essential (primary) hypertension; E78.5 Hyperlipidemia, unspecified; I25.10 Atherosclerotic heart disease of native coronary artery without angina pectoris; Z79.51 Long term (current) use of inhaled steroids; Z79.82 Long term (current) use of aspirin; Z79.899 Other long term (current) drug therapy

== ENCOUNTER → 2025-02-16 | Outpatient (CLI) | payer OTHER ==
[~2025-02-16] MED LIST changes: -LIDOCAINE W/EPINEPHrine 1% 20 ML VIAL XX ONE; -SODIUM BICARBONATE 8.4% INJ 50MEQ/50ML VIAL XX ONE
[2025-02-16 08:53] LABS: BASO # 0.0 10^3/uL (0.0-0.2); BASO % 0.7 % (0.0-1.0); EOS # 0.3 10^3/uL (0.0-0.5); EOS % 5.4 % (0.0-3.0); LYMPH # 2.0 10^3/uL (1.5-5.0); LYMPH % 34.2 % (24.0-44.0); MONO # 0.8 10^3/uL (0.0-0.8); MONO % 13.8 % (2.0-8.0); NEUTROPHILS # 2.6 10^3/uL (1.5-8.5); NEUTROPHILS % 45.6 % (36.0-66.0); PLATELET COUNT, AUTOMATED 222 10^3/uL (150-450)
[2025-02-16 09:25] LABS: VALPROIC ACID (DEPAKOTE) 27.7 UG/ML (50.0-100.0)
[2025-02-16 09:27] LABS: ALT/SGPT 33 U/L (7.0-40); AST/SGOT 30 U/L (<34); CALCIUM LEVEL 9.3 MG/DL (8.5-10.1); CARBON DIOXIDE LEVEL 29 MMOL/L (20-31); CHLORIDE LEVEL 103 MMOL/L (98-107); CREATININE FOR GFR 1.03 MG/DL (0.70-1.30); GLOMERULAR FILTRATION RATE 84.2 (>56); POTASSIUM SERUM 4.1 MMOL/L (3.5-5.1); SODIUM LEVEL 142 MMOL/L (136-145)
[2025-02-16 09:29] LABS: VITAMIN B12 LEVEL 432 PG/ML (211-911)
[2025-02-20 02:37] LABS: VITAMIN E(ALPHA TOCOPHEROL) 11.9 mg/L (5.7-19.9); VITAMIN E(GAMMA TOCOPHEROL) 1.6 mg/L (<=4.3)
== END ==
LOC: M LAB 07:34
PROVIDERS: ATTEND Psychiatry & Neurology Neurology
DX: R56.9 Unspecified convulsions (principal); Z51.81 Encounter for therapeutic drug level monitoring; Z79.899 Other long term (current) drug therapy

== ENCOUNTER → 2025-02-23 | Outpatient (CLI) | payer OTHER ==
[2025-02-23 11:21] LABS: TOTAL 25(OH) VITAMIN D 35.2 NG/ML (20.0-100.0)
[2025-02-23 11:22] LABS: CHOLESTEROL LEVEL 143.0 MG/DL (<200); CHOLESTEROL RISK RATIO 6.21 (<5); LDL CHOLESTEROL 87.8 MG/DL (<100); NON-HDL-C 120.0 MG/DL; TRIGLYCERIDES LEVEL 161.0 MG/DL (<150)
[2025-02-23 18:04] LABS: ESTIMATED AVERAGE GLUCOSE 117.0 MG/DL (60-110)
== END ==
LOC: M LAB 10:19
PROVIDERS: ATTEND Family Medicine
DX: R73.03 Prediabetes (principal); E78.5 Hyperlipidemia, unspecified; E55.9 Vitamin D deficiency, unspecified

== ENCOUNTER → 2025-04-05 | Outpatient (CLI) | payer OTHER, SELFPAY | LOC: M RAD 09:03 | PROVIDERS: ATTEND Internal Medicine Pulmonary Disease | DX: D86.2 Sarcoidosis of lung with sarcoidosis of lymph nodes (principal) ==